=== PATIENT | female | born 1950 | race Caucasian/White ===

== ENCOUNTER → 2018-02-01 18:59 | Outpatient (CLI) | payer MEDICARE, OTHER, SELFPAY ==
--- NOTE | 2018-02-01 19:04 | DI.MRI.S_ITS ---
PROCEDURE: MR ANKLE RT WO CON INDICATIONS: RIGHT ANKLE PERONEAL TENDINITIS TECHNIQUE: Noncontrast sagittal T1 spin echo and T2 fast spin echo with fat saturation, axial proton density fast spin echo and T2 fast spin echo with fat saturation, coronal T1 spin echo and T2 fast spin echo with fat saturation through the ankle/hindfoot. COMPARISON: None. FINDINGS: Image quality: Excellent. Bones and joints: No bone marrow contusions or fractures. No hindfoot coalitions. No osteochondral injuries of the talar dome. No pathologic joint effusions. Medial structures: The posterior tibialis, flexor digitorum longus, and flexor hallucis longus tendons are intact. There is minimal fluid adjacent to the posterior tibialis tendon suggestive of low-grade tenosynovitis although recommend clinical correlation given the subtlety of the appearance. The posterior tibial neurovascular bundle appears normal within the tarsal tunnel, without extrinsic mass effect. The deep layer (anterior and posterior tibiotalar ligaments) and superficial layer (tibionavicular, tibiospring, and tibiocalcaneal ligaments) of the deltoid ligament appear normal. The spring ligament components (superomedial calcaneonavicular, medioplantar oblique calcaneonavicular, and inferoplantar longitudinal ligaments) are intact. Lateral structures: The anterior talofibular, calcaneofibular, and posterior talofibular ligaments appear intact. More superiorly, the anterior and posterior tibiofibular ligaments appear intact, as is the intermalleolar ligament. The tibiofibular syndesmosis is normal in width at 2 mm or less. The peroneus longus and brevis tendons demonstrate normal location and morphology. However there is mild fluid adjacent to both tendons in keeping with tenosynovitis. Adjacent bony peroneal tubercle and retrotrochlear prominence are normal in size. The sinus tarsi demonstrates normal fatty signal, without edema, fibrosis, or cyst formation. Visualized sinus tarsi components (cervical ligament, interosseous talocalcaneal ligament, roots of the inferior extensor retinaculum) appear normal. The calcaneonavicular and calcaneocuboid components of the bifurcate ligament appear intact. The dorsal calcaneocuboid ligament appears intact. Anterior structures: The tibialis anterior, extensor hallucis longus, and extensor digitorum longus tendons appear intact. The dorsal talonavicular ligament appears intact. Posterior and plantar structures: Achilles tendon is intact. Medial and lateral bands of the plantar fascia are of normal thickness. No abductor digiti quinti muscle atrophy to suggest Clark neuropathy. IMPRESSION: Mild peroneal brevis and longus tenosynovitis. Minimal posterior tibialis tenosynovitis. Please correlate clinically given that this finding is quite subtle. Dictated by: Tam Rousseau M.D. on 02/02/2018 at 8:53 Approved by: Tam Rousseau M.D. on 02/02/2018 at 9:17
== END ==
PROVIDERS: Family Provider Family Medicine; Visit Provider Podiatrist
DX: M76.71 Peroneal tendinitis, right leg (principal)
CPT/HCPCS: 73721

== ENCOUNTER → 2018-11-25 13:06 | Outpatient (CLI) | payer MEDICARE, OTHER, SELFPAY ==
--- NOTE | 2018-11-25 | DI.RAD.S_ITS ---
PROCEDURE: XR HIP W PEL IF DONE RT 2V INDICATIONS: RIGHT HIP PAIN TECHNIQUE: AP pelvis with lateral view(s) of the right hip(s). COMPARISON: None. FINDINGS: Bones: Mild right hip joint osteoarthritic changes are seen. No fractures or dislocations. Pelvic ring appears intact. No evidence of avascular necrosis of femoral head. No suspicious bony lesions. Soft tissues: The visualized bowel gas pattern is normal. No suspicious soft tissue calcifications. IMPRESSION: Mild right hip joint osteoarthritis. Dictated by: David Holden M.D. on 11/25/2018 at 14:24 Approved by: David Holden M.D. on 11/25/2018 at 14:25
== END ==
PROVIDERS: Family Provider Family Medicine; Visit Provider Family Medicine
DX: M25.551 Pain in right hip (principal); M16.11 Unilateral primary osteoarthritis, right hip
CPT/HCPCS: 73502

== ENCOUNTER → 2019-08-29 11:19 | Outpatient (CLI) | payer MEDICARE, OTHER, SELFPAY ==
--- NOTE | 2019-08-29 | DI.US.S_ITS ---
PROCEDURE: US ABDOMEN COMPLETE INDICATIONS: ELEV LIVER ENZYMES/FATTY LIVER TECHNIQUE: Real-time scanning was performed of the abdominal and retroperitoneal organs, with image documentation. COMPARISON: None. FINDINGS: Liver: Liver is normal in size and demonstrate diffusely increased echotexture. Gallbladder: No gallstones. No gallbladder wall thickening, pericholecystic fluid or sonographic Morales's sign. Biliary ducts: Intrahepatic bile ducts are non-dilated. Extrahepatic bile duct caliber measures 8 mm. Normal is 6-7 mm or less in diameter, or 10 mm or less post-cholecystectomy. Pancreas: Visualized portions of the pancreas are sonographically normal. Spleen: Spleen is normal in size and homogeneous in echotexture. Kidneys: Kidneys are normal in size and echotexture. Right kidney measures 11.6 cm long; left kidney measures 9.9 cm long. No hydronephrosis or nephrolithiasis. No solid masses. There is a 1.4 cm parapelvic cyst versus extrarenal pelvis of the right kidney. Aorta: Visualized aorta is normal in caliber at less than 3 cm. Iliacs: Proximal common iliac arteries are normal in caliber at less than 2.5 cm. IVC: Intrahepatic inferior vena cava is patent. Miscellaneous: No free abdominal fluid. IMPRESSION: 1. Diffusely increased hepatic echotexture. This finding is most likely secondary to hepatic fatty infiltration although other hepatocellular disease may have a similar appearance. Recommend clinical correlation. 2. Prominent common bile duct measuring 8. Please correlate with serum bilirubin. If clinically indicated, MRCP may be helpful. 3. A 1.4 cm parapelvic cyst versus extrarenal pelvis of the right kidney. Dictated by: Jermaine Salazar M.D. on 08/29/2019 at 14:04 Approved by: Jermaine Salazar M.D. on 08/29/2019 at 14:09
== END ==
PROVIDERS: Family Provider Family Medicine; Visit Provider Family Medicine
DX: K76.0 Fatty (change of) liver, not elsewhere classified (principal); R74.8 Abnormal levels of other serum enzymes
CPT/HCPCS: 76700

== ENCOUNTER → 2020-02-02 11:31 | Outpatient (CLI) | payer MEDICARE, OTHER, SELFPAY ==
--- NOTE | 2020-02-02 11:39 | DI.RAD.S_ITS ---
PROCEDURE: XR CHEST 2V INDICATIONS: PERSISTENT COUGH/LT HIP PAIN TECHNIQUE: 2 views of the chest were acquired. COMPARISON: [facility], CHEST 2 VIEW, 08/27/2009, 9:44. FINDINGS: Surgical changes and devices: None. Lungs and pleura: Lungs are clear. No pleural effusions or pneumothorax. Mediastinum: Mediastinal contours are normal. Heart size is normal. Bones and chest wall: No suspicious bony abnormalities. Soft tissues appear unremarkable. IMPRESSION: No acute pulmonary process. Dictated by: Luciana Villatoro M.D. on 02/02/2020 at 16:47 Approved by: Luciana Villatoro M.D. on 02/02/2020 at 16:48
--- NOTE | 2020-02-02 11:39 | DI.RAD.S_ITS ---
PROCEDURE: XR HIP W PEL IF DONE LT 2V INDICATIONS: PERSISTENT COUGH/ LT HIP PAIN TECHNIQUE: AP pelvis with lateral view(s) of the left hip(s). COMPARISON: [facility], [facility], XR HIP W PEL IF DONE RT 2V, 11/25/2018, 13:24. FINDINGS: Bones: No fractures or dislocations. Pelvic ring appears intact. No suspicious bony lesions. Minimal to mild bilateral degenerative hip joint space narrowing is present. Overall, relatively stable compared to prior exam. Soft tissues: The visualized bowel gas pattern is normal. No suspicious soft tissue calcifications. IMPRESSION: Minimal mild bilateral degenerative hip joint space narrowing suggestive osteoarthritis. Dictated by: Luciana Villatoro M.D. on 02/02/2020 at 16:48 Approved by: Luciana Villatoro M.D. on 02/02/2020 at 16:49
== END ==
PROVIDERS: Family Provider Family Medicine; PCP Family Medicine; Referring Provider Family Medicine; Visit Provider Family Medicine
DX: R05 Cough (principal); M25.552 Pain in left hip
CPT/HCPCS: 71046; 73502

== ENCOUNTER → 2020-03-01 16:20 | Outpatient (CLI) | payer MEDICARE, OTHER, SELFPAY ==
--- NOTE | 2020-03-01 16:22 | DI.MRI.S_ITS ---
PROCEDURE: MR HIP LT WO CON INDICATIONS: LEFT HIP PAIN TECHNIQUE: Noncontrast coronal T1 spin echo and STIR through the bony pelvis. Coronal and axial T2 fast spin echo with fat saturation, sagittal T1 spin echo, and oblique axial T2 fast spin echo with fat saturation through the hip. COMPARISON: [facility], CR, XR HIP W PEL IF DONE LT 2V, 02/02/2020, 11:38. FINDINGS: Image quality: Excellent. Bones and joints: Bone marrow of the pelvic ring and proximal femurs show normal signal throughout. No intraosseous lesions or fractures. No avascular necrosis of the femoral heads. The visualized lower lumbar spine appears normally aligned. Tendons and ligaments: The gluteus medius and minimus tendons appear intact, without associated muscle atrophy. The nearby proximal iliotibial band also appears intact. The iliopsoas tendon appears intact, without adjacent bursal fluid collections or evidence for impingement syndrome. The origin of the hamstring tendon is intact at the ischial tuberosity, as well as the associated sacrotuberous ligament. The straight and reflected heads of the rectus femoris muscle origin appear intact, as well as the conjoint tendon. The ligamentum teres appears intact where visualized. Labrum and cartilage: The acetabular labrum appears intact in the absence of intra-articular contrast. Cartilage surface of the femoral head appears of normal thickness. The alpha angle of the femur is within normal limits at less than 55 degrees. Soft tissues: Visualized muscles demonstrate normal bulk and internal signal, however the greater trochanteric bursal margins are asymmetrically thickened and edematous, consistent with chronic bursitis without adjacent trauma as the underlying cause. Quadratus femoris muscle demonstrates no internal edema to suggest ischiofemoral impingement. The proximal sciatic neurovascular bundle appears normal adjacent to the hamstring tendons. No free pelvic fluid. Bladder wall thickness is normal. Genitourinary structures and bowel loops appear normal where visualized. IMPRESSION: Asymmetric left-sided greater trochanteric bursitis, without evidence of blunt trauma as the underlying cause of soft tissue edema and thickening in that area. No abnormal fluid collection within the bursal space is found. There is a small degree of degenerative hip joint osteoarthritis bilaterally. No trauma found. Dictated by: Carmelo Ashley M.D. on 03/04/2020 at 9:37 Approved by: Carmelo Ashley M.D. on 03/04/2020 at 9:52
== END ==
PROVIDERS: Family Provider Family Medicine; PCP Family Medicine; Referring Provider Family Medicine; Visit Provider Family Medicine
DX: M25.552 Pain in left hip (principal); M16.0 Bilateral primary osteoarthritis of hip; M70.62 Trochanteric bursitis, left hip
CPT/HCPCS: 73721

== ENCOUNTER → 2020-07-08 14:49 | Outpatient (CLI) | payer MEDICARE, OTHER, SELFPAY ==
[2020-07-08 17:40] LABS: COVID19 -Nasal RAPID Negative (Negative)
== END ==
PROVIDERS: Family Provider Family Medicine; PCP Family Medicine; Visit Provider Physician Assistant
DX: Z11.59 Encounter for screening for other viral diseases (principal)
CPT/HCPCS: 87635

== ENCOUNTER 2020-07-10 12:15 | Day surgery (SDC) | payer MEDICARE, OTHER, SELFPAY ==
--- NOTE | 2020-07-09 13:01 | PM.PREOP ---
Pre-operative Note COVID-19 COVID-19 status: Negative Interval Note History & Physical reviewed/Exam performed by Physician: Yes Changes to H&P: No H&P completed within 30 days and has changed as indicated here:: tolerates topical NSAID and prednisone without reaction
--- NOTE | 2020-07-10 08:13 | PM.OP.1 ---
Operative Date/Time/Diagnoses Date of procedure: 07/10/20 Time of procedure: 12:00 Procedure & Clinicians Procedure: Preoperative diagnoses: 1. Right significant nuclear sclerotic and cortical cataract. 2. Arrhythmia 3. Asthma 4. Previous herpes zoster 5. Desire for a multifocal Panoptix lens Postoperative diagnoses: 1. Cataract removed by phacoemulsification with placement of Panoptix multifocal posterior chamber intraocular lens. Procedure: Phacoemulsification with posterior chamber intraocular lens implant Surgeon: Kandy Mccurdy MD Complications: None Specimen: None Implant: TFAT00+21.0 Blood loss: None Anesthesia: Retrobulbar with monitored standby Description of procedure: Patient presents with a complaint of decreased vision at all ranges of vision due to cataract which is affecting activities of daily living. The patient wants surgery to improve vision. She is trying to be as glasses independent as possible in chooses a multifocal. She understands that there may still be some need for glasses or residual refractive. The patient was taken to the operating room and given IV sedation. A retrobulbar block consisting of 6 cc of 2% xylocaine without epinephrine mixed half and half with 0.5% Marcaine with 1 cc of hyaluronidase added is placed between the medial and lateral 1/3 of the inferior orbital rim. The eye is manually massaged for 30 sec, prepped using Betadine solution, and draped in the usual sterile fashion. Temporal approach was made, a 1 mm side-port incision was made 90? from the proposed clear corneal incision position. Phenylephrine 1.5% mixed with 1% xylocaine 0.2 cc was placed into the anterior chamber. Viscoat followed by Amanda was then placed. A 2.6 mm clear incision with a 2.6 mm blade was placed. A 360 degree capsulorrhexis style capsulotomy was then performed with a cystitome needle on a Healon. Hydrodelineation and hydrodissection were performed. The phacoemulsification unit is introduced, and sculpting notice used to groove the central lens. It is then removed in chopping mode. Epi nucleus is removed with epinuclear mode and irrigation aspiration was used to remove the peripheral cortex. The posterior capsule is polished. The Panoptix intraocular lens is selected, inspected, power confirmed, and placed in the posterior chamber. It was carefully centered in the true visual axis. The wound was stromally hydrated and tested for leaks, there was none and it was left sutureless. Vigamox 0.1 cc was placed into the anterior chamber. Kenalog 0.2 cc was placed in the superior subconjunctival space. A drop of antibiotic and was placed and the eye was patched and shielded. The patient was stable and returned to the recovery room in excellent condition. Dictated by: Kandy Mccurdy MD Copy to: [facility] Same procedure as scheduled: Yes
[2020-07-10] MEDS: PROPARACAINE 0.5% OPHTH SOL 2 DROPS EYE-OP (12:42)
[2020-07-10] MEDS: CATARACT EYE COMPOUND (10 DROPS/SYRINGE) 3 DROPS EYE-OP (12:46)
[2020-07-10 12:47] VITALS: BP 130/73; PULSE 69; RESP 12; TEMP 36.7; O2SAT 99; BMI 23.5
[2020-07-10] MEDS: LIDOCAINE 2% 4 ML, BUPIVACAINE 0.5% (PF) 4 ML, HYALURONIDASE 150 UNIT INJ (13:16)
[2020-07-10] MEDS: HYALURONATE SODIUM 10 MG/ML SYRINGE INJ (13:31)
[2020-07-10] MEDS: MOXIFLOXACIN INJ 5 MG/ML VIAL EYE-OP (13:31)
[2020-07-10] MEDS: CHONDROIDTIN/SOD HYALURONATE 1.05 ML SYRINGE INTRAOCULA (13:31)
[2020-07-10] MEDS: TRIAMCINOLONE 50 MG/5 ML VIAL INJ (13:32)
[2020-07-10] MEDS: PHENYLEPHRINE/LIDOCAINE VIAL (OR) 0.2 ML EYE-OP (13:32)
[2020-07-10] MEDS: BALANCED SALT IRRIG SOLN NO.2 500 ML, EPINEPHrine 1 MG IRR (13:33)
[2020-07-10] MEDS: ERYTHROMYCIN OPHTH 1 GM OINT 1 APPLIC EYE-RIGHT (14:04)
[2020-07-10 14:15] VITALS: BP 120/72; PULSE 54; RESP 16; TEMP 36.2; O2SAT 98
== END 2020-07-10 14:20 | disposition home or self-care (01) ==
PROVIDERS: Family Provider Family Medicine; PCP Family Medicine; Referring Provider Ophthalmology; Visit Provider Ophthalmology
PROC: (CPT 66984; principal; 2020-07-10 13:15)
DX: H25.811 Combined forms of age-related cataract, right eye (principal); I49.9 Cardiac arrhythmia, unspecified; J45.909 Unspecified asthma, uncomplicated
CPT/HCPCS: 66984; J0171; J2250; J2704; J3010; J3301; J3470; V2788

== ENCOUNTER → 2020-07-22 11:32 | Outpatient (CLI) | payer MEDICARE, OTHER, SELFPAY ==
[2020-07-22 12:56] LABS: COVID19 -Nasal RAPID Negative (Negative)
== END ==
PROVIDERS: Family Provider Family Medicine; PCP Family Medicine; Visit Provider Physician Assistant
DX: Z11.59 Encounter for screening for other viral diseases (principal)
CPT/HCPCS: 87635

== ENCOUNTER 2020-07-24 13:47 | Day surgery (SDC) | payer MEDICARE, OTHER, SELFPAY ==
--- NOTE | 2020-07-23 19:17 | PM.PREOP ---
Pre-operative Note COVID-19 COVID-19 status: Negative Interval Note History & Physical reviewed/Exam performed by Physician: Yes Changes to H&P: No
--- NOTE | 2020-07-23 20:27 | PM.OP.1 ---
Operative Date/Time/Diagnoses Date of procedure: 07/24/20 Time of procedure: 14:15 Procedure & Clinicians Procedure: Preoperative diagnoses: 1. Left nuclear sclerotic and cortical cataract. 2. Asthma 3. Previous shingles 4. Elects a multifocal Panoptix intra-ocular lens. Postoperative diagnoses: 1. Cataract removed by phacoemulsification with placement of a multi focal posterior chamber intraocular lens. Procedure: Phacoemulsification with posterior chamber multifocal intraocular lens implant Surgeon: Kandy Mccurdy MD Complications: None Specimen: None Implant: TFAT00+20.5 Blood loss: None Anesthesia: Retrobulbar with monitored standby Description of procedure: Patient presents with a complaint of decreased vision due to cataract which is affecting activities of daily living. The patient wants surgery to improve vision. The patient was taken to the operating room and given IV sedation. A retrobulbar block consisting of 6 cc of 2% xylocaine without epinephrine mixed half and half with 0.5% Marcaine with 1 cc of hyaluronidase added is placed between the medial and lateral 1/3 of the inferior orbital rim. The eye is manually massaged for 30 sec, prepped using Betadine solution, and draped in the usual sterile fashion. Temporal approach was made, a 1 mm side-port incision was made 90? from the proposed clear corneal incision position. Phenylephrine 1.5% mixed with 1% xylocaine 0.2 cc was placed into the anterior chamber. Viscoat followed by Amanda was then placed. A 2.6 mm clear incision with a 2.6 mm blade was placed. A 360 degree capsulorrhexis style capsulotomy was then performed with a cystitome needle on a Healon. Hydrodelineation and hydrodissection were performed. The phacoemulsification unit is introduced, and sculpting notice used to groove the central lens. It is then removed in chopping mode. Epi nucleus is removed with epinuclear mode and irrigation aspiration was used to remove the peripheral cortex. The posterior capsule is polished. The multifocal intraocular lens is selected, inspected, power confirmed, and placed in the posterior chamber. It was carefully centered on the visual The wound was stromally hydrated and tested for leaks, there was none and it was left sutureless. Vigamox 0.1 cc was placed into the anterior chamber. Kenalog 0.2 cc was placed in the superior subconjunctival space. A drop of antibiotic and was placed and the eye was patched and shielded. The patient was stable and returned to the recovery room in excellent condition. Dictated by: Kandy Mccurdy MD Copy to: [facility] Same procedure as scheduled: Yes
[2020-07-24] MEDS: CATARACT EYE COMPOUND (10 DROPS/SYRINGE) 3 DROPS EYE-OP (14:41)
[2020-07-24] MEDS: PROPARACAINE 0.5% OPHTH SOL 2 DROPS EYE-OP (14:41)
[2020-07-24 15:04] VITALS: BP 136/72; PULSE 79; RESP 20; TEMP 36.4; O2SAT 99; BMI 23.5
[2020-07-24] MEDS: CHONDROIDTIN/SOD HYALURONATE 1.05 ML SYRINGE INTRAOCULA (16:05)
[2020-07-24] MEDS: MOXIFLOXACIN INJ 5 MG/ML VIAL EYE-OP (16:06)
[2020-07-24] MEDS: TRIAMCINOLONE 50 MG/5 ML VIAL INJ (16:06)
[2020-07-24] MEDS: HYALURONATE SODIUM 10 MG/ML SYRINGE INJ (16:06)
[2020-07-24] MEDS: PHENYLEPHRINE/LIDOCAINE VIAL (OR) 0.2 ML EYE-OP (16:06)
[2020-07-24] MEDS: ERYTHROMYCIN OPHTH 1 GM OINT 1 APPLIC EYE-LEFT (16:06)
[2020-07-24] MEDS: BALANCED SALT IRRIG SOLN NO.2 500 ML, EPINEPHrine 1 MG IRR (16:07)
[2020-07-24] MEDS: LIDOCAINE 2% 4 ML, BUPIVACAINE 0.5% (PF) 4 ML, HYALURONIDASE 150 UNIT INJ (16:07)
[2020-07-24 16:35] VITALS: BP 133/73; PULSE 64; RESP 16; TEMP 36.1; O2SAT 98
== END 2020-07-24 16:42 | disposition home or self-care (01) ==
PROVIDERS: Family Provider Family Medicine; PCP Family Medicine; Referring Provider Ophthalmology; Visit Provider Ophthalmology
PROC: (CPT 66984; principal; 2020-07-24 15:15)
DX: H25.812 Combined forms of age-related cataract, left eye (principal); J45.909 Unspecified asthma, uncomplicated
CPT/HCPCS: 66984; J0171; J2704; J3301; J3470; V2788

== ENCOUNTER → 2022-04-22 09:09 | Outpatient (CLI) | payer MEDICARE, OTHER, SELFPAY ==
--- NOTE | 2022-04-22 | DI.RAD.S_ITS ---
PROCEDURE: XR ELBOW RT MIN 3V INDICATIONS: RIGHT ELBOW PAIN TECHNIQUE: 3 views of the elbow were acquired. COMPARISON: None. FINDINGS: Bones: No fractures or dislocations. No suspicious bony lesions. Soft tissues: No elbow joint effusion. No suspicious soft tissue calcifications. IMPRESSION: No acute fracture. No osseous lesion. If symptoms and/or clinical suspicion for pathology persist, further assessment with repeat, or advanced imaging (e.g., CT, MRI, or bone scan) may be helpful for further assessment. Dictated by: Nathalia Angel M.D. on 04/22/2022 at 11:31 Approved by: Nathalia Angel M.D. on 04/22/2022 at 11:31
== END ==
PROVIDERS: Family Provider Family Medicine; PCP Family Medicine; Referring Provider Family Medicine; Visit Provider Family Medicine
DX: M25.521 Pain in right elbow (principal)
CPT/HCPCS: 73080

== ENCOUNTER → 2022-04-29 14:20 | Outpatient (CLI) | payer MEDICARE, OTHER, SELFPAY ==
--- NOTE | 2022-04-29 14:22 | DI.MG.S_ITS ---
BILATERAL DIGITAL SCREENING MAMMOGRAM 3D/2D WITH CAD: 04/29/2022 CLINICAL: Routine screening. Comparison is made to exams dated: 10/30/2020 mammogram, 11/24/2018 mammogram, and 08/25/2017 mammogram - [facility]. Both breasts are heterogeneously dense, which may obscure small masses (category c / 51-75% glandular tissue). Current study was also evaluated with a Computer Aided Detection (CAD) system. There are grouped heterogeneous calcifications in the left breast at 8 o'clock middle depth. These are increased in size and number. Benign vascular calcifications in the left breast. There is a biopsy clip in the left breast. No other significant masses, calcifications, or other findings are seen in either breast. IMPRESSION: INCOMPLETE: NEEDS ADDITIONAL IMAGING EVALUATION The grouped heterogeneous calcifications in the left breast are indeterminate. A diagnostic mammogram is recommended. Based on the Tyrer Cuzick model (a risk assessment model) the patient's lifetime risk is 12.0% and her 10 year risk is 7.2%. According to the ACR, ACS, and NCCN guidelines, an annual breast MRI exam along with mammogram is recommended if the patient's lifetime risk is 20% or greater. This exam was interpreted at Station ID: [id number]. NOTE: For mammograms, a report in lay terms will be sent to the patient. Approximately 15% of breast malignancies will not be visualized mammographically. In the management of a palpable breast mass, a negative mammogram must not discourage biopsy of a clinically suspicious lesion. Electronically Signed By: Franco Hawk M.D. slc/:04/29/2022 17:23:37 letter sent: Additional Imaging Needed ACR BI-RADS Category 0: Incomplete 3340F
== END ==
PROVIDERS: Family Provider Family Medicine; PCP Family Medicine; Referring Provider Family Medicine; Visit Provider Family Medicine
DX: Z12.31 Encounter for screening mammogram for malignant neoplasm of breast (principal); R92.1 Mammographic calcification found on diagnostic imaging of breast
CPT/HCPCS: 77063; 77067

== ENCOUNTER → 2022-05-11 13:15 | Outpatient (CLI) | payer MEDICARE, OTHER, SELFPAY ==
--- NOTE | 2022-05-11 | DI.MG.S_ITS ---
UNILATERAL LEFT DIGITAL DIAGNOSTIC MAMMOGRAM 3D/2D WITH ADDITIONAL VIEWS: 05/11/2022 CLINICAL: Additional evaluation requested from prior study. Comparison is made to exams dated: 04/29/2022 mammogram - [facility], 10/30/2020 mammogram, and 11/24/2018 mammogram - [facility]. The left breast is heterogeneously dense, which may obscure small masses (category c / 51-75% glandular tissue). There are benign grouped heterogeneous calcifications in the left breast at 8 o'clock middle depth. These are not significantly changed. No other significant masses or calcifications are seen in the breast. IMPRESSION: BENIGN There is no mammographic evidence of malignancy. A 1 year screening mammogram is recommended. Based on the Tyrer Cuzick model (a risk assessment model) the patient's lifetime risk is 12.0% and her 10 year risk is 7.2%. According to the ACR, ACS, and NCCN guidelines, an annual breast MRI exam along with mammogram is recommended if the patient's lifetime risk is 20% or greater. This exam was interpreted at Station ID: [id number]. NOTE: For mammograms, a report in lay terms will be sent to the patient. Approximately 15% of breast malignancies will not be visualized mammographically. In the management of a palpable breast mass, a negative mammogram must not discourage biopsy of a clinically suspicious lesion. Electronically Signed By: Emanuel Alvarenga M.D., jr/brittnee:05/11/2022 13:59:07 letter sent: Normal Exam ACR BI-RADS Category 2: Benign Finding(s) 3342F
== END ==
PROVIDERS: Family Provider Family Medicine; PCP Family Medicine; Referring Provider Family Medicine; Visit Provider Family Medicine
DX: R92.8 Other abnormal and inconclusive findings on diagnostic imaging of breast (principal)
CPT/HCPCS: 77065; G0279

== ENCOUNTER → 2022-08-05 11:02 | Outpatient (CLI) | payer MEDICARE, OTHER, SELFPAY ==
[2022-08-05 11:45] LABS: COVID19 -Nasal RAPID Negative (Negative)
== END ==
PROVIDERS: Family Provider Family Medicine; PCP Family Medicine; Referring Provider Orthopaedic Surgery; Visit Provider Orthopaedic Surgery
DX: Z20.822 Contact with and (suspected) exposure to COVID-19 (principal)
CPT/HCPCS: 87635; C9803

== ENCOUNTER 2022-08-07 09:03 | Day surgery (SDC) | payer MEDICARE, OTHER, SELFPAY ==
[2022-08-05 07:58] VITALS: BMI 24.5
[2022-08-07] VITALS (7 sets, daily range): BP systolic 112–157; BP diastolic 56–78; PULSE 64–88; RESP 12–16; TEMP 36.3–36.6; O2SAT 97–100; BMI 24.0
[2022-08-07] MEDS: LACTATED RINGERS 1,000 ML 42 ML IV ×2 (10:08→12:11)
--- NOTE | 2022-08-07 11:18 | PM.HP.1 ---
History of Present Illness History of Present Illness Date Patient Seen: 08/07/22 Time Patient Seen: 11:18 Chief complaint: DEBRIDEMENT OF RIGHT TENNIS ELBOW Narrative: Patient seen in the preoperative holding unit. She was last seen in clinic in June. She is had no changes in her tennis elbow symptoms since then. No recent nausea, vomiting, diarrhea, fevers, chills or any other constitutional symptoms. Patient History Medical History Asthma COVID-19 virus infection (12/2021) DVT (deep venous thrombosis) Osteoporosis Right tennis elbow Surgical History H/O left wrist surgery H/O right wrist surgery History of hysterectomy Hx of appendectomy Hx of arthroscopy of left knee Hx of arthroscopy of right knee Hx of removal of cyst S/P excision of Garcia's neuroma Family & Social History Social History: household members spouse Tobacco & Substance use: Smoking Status Never smoker alcohol intake current alcohol intake frequency a few times a week Substance Use Type does not use Meds Home Medications and Allergies Home Medications Medication Instructions Recorded Confirmed Type atenolol 25 mg tablet 25 - 50 mg PO DAILY 07/10/20 08/07/22 History estradiol 0.05 mg/24 hr semiweekly 1 mg transdermal 2XW 07/10/20 08/07/22 History transdermal patch Allergies Allergy/AdvReac Type Severity Reaction Status Date / Time oxycodone Allergy Severe Hives Verified 08/07/22 09:31 Sulfa (Sulfonamide Allergy Severe facial Verified 08/07/22 09:31 Antibiotics) swelling NSAIDS (Non-Steroidal Allergy Intermediate Rash Verified 08/07/22 09:31 Anti-Inflamma codeine Allergy Unknown Hives Verified 08/07/22 09:31 hydrocodone Allergy Unknown Hives Verified 08/07/22 09:31 rosuvastatin AdvReac Severe Muscle Pain Verified 08/07/22 09:43 aspirin AdvReac Unknown Gastrointestinal Verified 08/07/22 09:31 Upset prednisone AdvReac Unknown sleep Verified 08/07/22 09:43 walking/talking Review of Systems Review of Systems ROS: Yes All systems reviewed with the patient and are negative except as otherwise documented Exam Vital Signs (past 8 hours): - 08/07/22 09:53 Temperature 97.8 F Pulse Rate 64 Respiratory Rate 12 Blood Pressure 157/78 H Pulse Oximetry 100 Oxygen Delivery Method Room Air Oxygen Delivery Method Room Air Narrative Exam Narrative: HEENT head atraumatic eyes anicteric moist mucous membranes Cardiovascular: Palpable peripheral pulses warm well-perfused extremities Respiratory: Breathing comfortably on room air Psych: Appropriate mood and affect Neuro: No acute deficits Musculoskeletal: Pain just distal and medial to the medial epicondyle. Pain with resisted wrist extension. Assessment & Plan Assessment & Plan narrative: Assessment: Right tennis elbow Plan: Patient here for operative debridement of right tennis elbow. We discussed the risks and benefits of surgery and she again wished to go forward with surgery. Time Spent With Patient Critical Care time: I spent a total of [] minutes of critical care time on this patient's care today; this time is exclusive of procedural time.
[2022-08-07] MEDS: CEFAZOLIN 2 GM/100 ML PREMIX 100 ML IV (11:40)
[2022-08-07] MEDS: BUPIVACAINE 0.5% W/ EPI (PF) 30 ML VIAL INJ (11:58)
--- NOTE | 2022-08-07 12:01 | SUR.OPER ---
Supine on padded OR bed, head on pillow, left arm secured on padded arm boards at <90 degrees abduction, right arm on arm board padded extension and in control of the Surgeon. legs uncrossed, safety belt at thigh, tape over blanket over lower legs. 2 pillows under knees, gel pad under bilateral heels.
[2022-08-07] MEDS: hydrOXYzine 50 MG/ML INJ 25 MG IM (12:48)
--- NOTE | 2022-08-07 13:06 | PM.OP.1 ---
Operative Date/Time/Diagnoses Date of procedure: 08/07/22 Time of procedure: 13:06 Pre-op diagnosis: Right tennis elbow Post-op diagnosis: same Procedure & Clinicians Procedure: Open debridement right ECRB tendon Same procedure as scheduled: Yes Indications: Yesica is a very pleasant 71-year-old female who has had tennis elbow in her right elbow for over a year. She is undergone physical therapy, counterforce strap, anti-inflammatories all of which have failed. Risks and benefits discussed again and she wished to go forth. Surgeon: Kenton Silva Click Yes if Unassisted: Yes Anesthesia Type: General Operative Notes Closure Type: primary Specimen(s): none sent
--- NOTE | 2022-08-07 14:58 | PM.OP.1 ---
Operative Date/Time/Diagnoses Date of procedure: 08/07/22 Time of procedure: 14:59 Pre-op diagnosis: Right tennis elbow Post-op diagnosis: same Procedure & Clinicians Procedure: Operative debridement of extensor carpi radialis brevis tendon origin (debridement of right tennis elbow) Same procedure as scheduled: Yes Indications: Yesica is a 71-year-old female who has had tennis elbow for over 1 year. She has done Over 1 year of nonoperative management and has failed. She continues to have pain on a daily basis which is distracting and interferes with her daily life. We discussed risks and benefits of surgery and she wished to go forward. Surgeon: Kenton Silva Click Yes if Unassisted: Yes Anesthesia Type: General Operative Notes Findings: tendinosis of the ECRB tendon as seen under direct visualization Closure Type: primary Specimen(s): none sent Prosthetic devices, grafts, tissues, transplants, or devices: None Estimated Blood Loss (mL): 5 Blood products transfused: none Tourniquet time (min): 23 Procedure in detail: Patient was seen in the preoperative holding unit. Her right upper extremity was marked with my initials. We again went over the risks and benefits of the procedure and she wished to go forward. She was brought back to the operating room and placed supine on the operating table. She underwent smooth induction of anesthesia with an LMA. Tourniquet was applied to the right upper extremity. The right upper extremity was then prepped and draped in the standard sterile fashion. My initials were again noted on her right upper extremity and tourniquet was inflated to 250 mmHg. I began with a small 3 cm incision over and just distal to the lateral epicondyle. The ECRL and extensor digitorum communis was noted. The interval between was incised and the ECRL was elevated. Underneath was the ECRB fibers as the inserted on the lateral epicondyle. These were noted to be degenerated. The degenerated fibers of the ECRB were then cut out with a scalpel. The remaining area was debrided the healthy tendon was then repaired to the ECRL with interrupted buried Ethibond sutures. The skin closure was done with 3-0 Monocryl. Dressing was done with Xeroform, 4x4s and cast padding. She was brought to the postoperative holding unit Complications: none Post-operative Condition: stable Disposition: PACU Plan for aftercare: Postoperatively, pain control with ice and Tylenol as she can not tolerate narcotics or NSAIDs. No heavy lifting for the next 4 weeks. . Gentle range of motion acceptable. Dressings may come off after 2 days in order to shower, then replaced dressings for 3 more days and then they can come off completely. Follow up in 2 weeks for wound check.
== END 2022-08-07 13:30 | disposition home or self-care (01) ==
PROVIDERS: Family Provider Family Medicine; PCP Family Medicine; Referring Provider Orthopaedic Surgery; Visit Provider Orthopaedic Surgery
PROC: (CPT 24359; principal; 2022-08-07 10:45)
DX: M67.823 Other specified disorders of tendon, right elbow (principal)
CPT/HCPCS: 24359; J0690; J2250; J2405; J2704; J3010; J3410

== ENCOUNTER → 2023-06-01 09:44 | Outpatient (CLI) | payer MEDICARE, OTHER, SELFPAY ==
--- NOTE | 2023-06-01 | DI.MG.S_ITS ---
BILATERAL DIGITAL SCREENING MAMMOGRAM 3D/2D WITH CAD: 06/01/2023 CLINICAL: Routine screening. Family history of breast cancer. Comparison is made to exams dated: 04/29/2022 mammogram and 05/11/2022 mammogram - [facility]. Both breasts are heterogeneously dense, which may obscure small masses (category c / 51-75% glandular tissue). Current study was also evaluated with a Computer Aided Detection (CAD) system. There are benign calcifications in both breasts. There also are benign vascular calcifications in both breasts. Additionally, there is a biopsy clip in the left breast. No significant masses, calcifications, or other findings are seen in either breast. There has been no significant interval change. IMPRESSION: BENIGN There is no mammographic evidence of malignancy. A 1 year screening mammogram is recommended. Based on the Tyrer Cuzick model (a risk assessment model) the patient's lifetime risk is 11.4% and her 10 year risk is 7.3%. According to the ACR, ACS, and NCCN guidelines, an annual breast MRI exam along with mammogram is recommended if the patient's lifetime risk is 20% or greater. This exam was interpreted at Station ID: [id number]. NOTE: For mammograms, a report in lay terms will be sent to the patient. Approximately 15% of breast malignancies will not be visualized mammographically. In the management of a palpable breast mass, a negative mammogram must not discourage biopsy of a clinically suspicious lesion. Electronically Signed By: Franco ramirez/brittnee:06/01/2023 13:23:41 letter sent: Normal Exam ACR BI-RADS Category 2: Benign Finding(s) 3342F
== END ==
PROVIDERS: PCP Family Medicine; Referring Provider Family Medicine; Visit Provider Family Medicine
DX: Z12.31 Encounter for screening mammogram for malignant neoplasm of breast (principal); Z80.3 Family history of malignant neoplasm of breast
CPT/HCPCS: 77063; 77067

== ENCOUNTER 2023-08-09 14:03 | Emergency (ER) | payer MEDICARE, OTHER, SELFPAY ==
[2023-08-09 14:07] VITALS: BP 142/67; PULSE 89; RESP 24; TEMP 37.5; O2SAT 97; BMI 22.8
--- NOTE | 2023-08-09 14:13 | DI.RAD.S_ITS ---
PROCEDURE: XR CHEST 2V INDICATIONS: cough, SOB, wheezing TECHNIQUE: 2 views of the chest were acquired. COMPARISON: [facility], , XR CHEST 2V, 02/02/2020, 11:38. [facility], , CHEST 2 VIEW, 08/27/2009, 9:44. FINDINGS: Surgical changes and devices: None. Lungs and pleura: Lungs are clear. No pleural effusions or pneumothorax. Mediastinum: Mediastinal contours are normal. Heart size is normal. Bones and chest wall: No suspicious bony abnormalities. Soft tissues appear unremarkable. IMPRESSION: No acute cardiopulmonary abnormality is seen. Dictated by: Samy Burrell M.D. on 08/09/2023 at 15:02 Approved by: Samy Burrell M.D. on 08/09/2023 at 15:03
[2023-08-09 14:59] LABS: Influenza A - CEPHEID Flu A NEGATIVE (NEGATIVE); Influenza B - CEPHEID Flu B NEGATIVE (NEGATIVE)
[2023-08-09 15:01] LABS: COVID-19 CEPHEID 4-PLEX PCR Negative (Negative)
[2023-08-09 15:03] LABS: Respiratory Syncytial Virus POSITIVE (Negative)
--- NOTE | 2023-08-09 15:19 | ED.URI ---
HPI - URI/Sore Throat General Chief Complaint: Upper Respiratory Symptoms Stated Complaint: coughing/ wheezing/ Time Seen by Provider: 08/09/23 14:28 Source: patient Mode of arrival: Ambulatory Related Data Home Medications Medication Instructions Recorded Confirmed atenolol 25 mg tablet 25 - 50 mg PO DAILY 07/10/20 08/07/22 estradiol 0.05 mg/24 hr semiweekly 1 mg transdermal 2XW 07/10/20 08/07/22 transdermal patch Previous Rx's Medication Instructions Recorded albuterol sulfate 90 mcg/actuation 2 puff inhalation Q4-6H PRN 08/09/23 aerosol inhaler shortness of breath or wheezing #6.7 grams benzonatate 100 mg capsule 100 mg PO BID-TID PRN cough #30 08/09/23 caps Allergies Allergy/AdvReac Type Severity Reaction Status Date / Time oxycodone Allergy Severe Hives Verified 08/09/23 14:07 Sulfa (Sulfonamide Allergy Severe facial Verified 08/09/23 14:07 Antibiotics) swelling NSAIDS (Non-Steroidal Allergy Intermediate Rash Verified 08/09/23 14:07 Anti-Inflamma codeine Allergy Unknown Hives Verified 08/09/23 14:07 hydrocodone Allergy Unknown Hives Verified 08/09/23 14:07 rosuvastatin AdvReac Severe Muscle Pain Verified 08/09/23 14:07 aspirin AdvReac Unknown Gastrointestinal Verified 08/09/23 14:07 Upset prednisone AdvReac Unknown sleep Verified 08/09/23 14:07 walking/talking Patient History Medical History Asthma COVID-19 virus infection (12/2021) DVT (deep venous thrombosis) Osteoporosis Right tennis elbow Surgical History H/O left wrist surgery H/O right wrist surgery History of hysterectomy Hx of appendectomy Hx of arthroscopy of left knee Hx of arthroscopy of right knee Hx of removal of cyst S/P excision of Garcia's neuroma Social History household members: spouse Smoking Status: Never smoker alcohol intake: current Smoking Status: Never smoker alcohol intake frequency: a few times a week Substance Use Type: does not use Exam Initial Vital Signs Initial Vital Signs: Vital Signs Temperature 99.5 F 08/09/23 14:07 Pulse Rate 89 08/09/23 14:07 Respiratory Rate 24 08/09/23 14:07 Blood Pressure 142/67 H 08/09/23 14:07 Pulse Oximetry 97 08/09/23 14:07 Oxygen Delivery Method Room Air 08/09/23 14:07 Course Orders Ordered: ED Orders 08/09/23 14:13 XR chest 2V Stat 08/09/23 14:15 Covid-19 + FLU A/B + RSV - PCR Stat Vital Signs Vital signs: Vital Signs - 8 hr 08/09/23 14:07 Temperature 99.5 F Pulse Rate 89 Respiratory Rate 24 Blood Pressure 142/67 H Pulse Oximetry 97 Oxygen Delivery Method Room Air MDM - URI/Sore Throat Lab Data Labs: Lab Results 08/09/23 Range/Units 14:15 SARS-CoV-2 (PCR) Negative (Negative) Influenza A (RT-PCR) Flu a negative (NEGATIVE) Influenza B (RT-PCR) Flu b negative (NEGATIVE) RSV (PCR) Positive A (Negative) Discharge Plan Departure Patient Disposition: Home Clinical Impression: Respiratory syncytial virus (RSV) Activity Restrictions/Additional Instructions: You have been diagnosed with RSV today. I recommend treatment with albuterol inhaler as well as with Tessalon Perles. I have sent these into your pharmacy [facility]. I recommend continued rest, Tylenol ibuprofen as needed. Please return to the emergency department if you should develop difficulty breathing, difficulty staying hydrated or if you are developing concerning weakness making it difficult to care for herself at home. Or other concerning symptoms. Thank you for coming in today for your care. *You have been diagnosed with RSV *What to do: *Please continue to take your regular medications as directed. [x ] New medication prescriptions sent to your pharmacy: [[facility] ] [ ] New medication written as a paper prescription [ ] No new medications given *Please follow up with your primary care provider in 2-3 days, call for an appointment. Let them know you were seen in the Emergency Department and that we ask that you be seen in follow up. We will electronically transmit a record of today's note if your PCP is in our system *If you do not have a primary care provider please contact the [facility] Resource line at [phone]. They will ask some questions about your medical history and help get you set up with a doctor in the community. *Return to Emergency Department if you should have any new, worsening or concerning symptoms, such as [fever greater than 101 F, shaking chills, worsening pain, persistent vomiting or other bothersome symptoms] Prescriptions: New albuterol sulfate 90 mcg/actuation HFA aerosol inhaler 2 puff inhalation Q4-6H PRN (Reason: shortness of breath or wheezing) Qty: 6.7 0RF benzonatate 100 mg capsule 100 mg PO BID-TID PRN (Reason: cough) Qty: 30 0RF No Action atenolol 25 mg tablet 25 - 50 mg PO DAILY estradiol 0.05 mg/24 hr patch semiweekly 1 mg transdermal 2XW Referrals: Alok Velasco MD [Primary Care Provider] - Stand Alone Forms: Patient Portal/API
--- NOTE | 2023-08-09 15:23 | ED_ITS ---
HPI - URI/Sore Throat General Chief Complaint: Upper Respiratory Symptoms Stated Complaint: coughing/ wheezing/ Time Seen by Provider: 08/09/23 14:28 Source: patient Mode of arrival: Ambulatory History of Present Illness HPI Narrative: Patient is a 72-year-old female presenting for evaluation of cough, fever and chills for the last 4 or 5 days. She states that she is had a little bit of a sore throat which he thinks is due to her persistent coughing. She states that she is also having sinus congestion and coughing up green and red specks. She reports her ribs are quite sore and she has noticed crackling in her upper chest. She denies any ear pain. She denies any nausea or vomiting. She states that she had a fever today of 101.6. She took some Tessalon Perles which she had left over from 2010. She would like to use [facility] as her pharmacy. She denies chest pain aside from coughing. She states that she has had a clot in her leg before, but denies a clot in her lung. She denies taking any anticoagulants, but does note she is on a beta-augustina. She reports she does have underlying asthma Related Data Home Medications Medication Instructions Recorded Confirmed atenolol 25 mg tablet 25 - 50 mg PO DAILY 07/10/20 08/07/22 estradiol 0.05 mg/24 hr semiweekly 1 mg transdermal 2XW 07/10/20 08/07/22 transdermal patch Previous Rx's Medication Instructions Recorded albuterol sulfate 90 mcg/actuation 2 puff inhalation Q4-6H PRN 08/09/23 aerosol inhaler shortness of breath or wheezing #6.7 grams benzonatate 100 mg capsule 100 mg PO BID-TID PRN cough #30 08/09/23 caps Allergies Allergy/AdvReac Type Severity Reaction Status Date / Time oxycodone Allergy Severe Hives Verified 08/09/23 14:07 Sulfa (Sulfonamide Allergy Severe facial Verified 08/09/23 14:07 Antibiotics) swelling NSAIDS (Non-Steroidal Allergy Intermediate Rash Verified 08/09/23 14:07 Anti-Inflamma codeine Allergy Unknown Hives Verified 08/09/23 14:07 hydrocodone Allergy Unknown Hives Verified 08/09/23 14:07 rosuvastatin AdvReac Severe Muscle Pain Verified 08/09/23 14:07 aspirin AdvReac Unknown Gastrointestinal Verified 08/09/23 14:07 Upset prednisone AdvReac Unknown sleep Verified 08/09/23 14:07 walking/talking Review of Systems Review of Systems Narrative: See HPI Patient History Medical History Asthma COVID-19 virus infection (12/2021) DVT (deep venous thrombosis) Osteoporosis Right tennis elbow Surgical History H/O left wrist surgery H/O right wrist surgery History of hysterectomy Hx of appendectomy Hx of arthroscopy of left knee Hx of arthroscopy of right knee Hx of removal of cyst S/P excision of Garcia's neuroma Social History household members: spouse Smoking Status: Never smoker alcohol intake: current Smoking Status: Never smoker alcohol intake frequency: a few times a week Substance Use Type: does not use Exam Initial Vital Signs Initial Vital Signs: Vital Signs Temperature 99.5 F 08/09/23 14:07 Pulse Rate 89 08/09/23 14:07 Respiratory Rate 24 08/09/23 14:07 Blood Pressure 142/67 H 08/09/23 14:07 Pulse Oximetry 97 08/09/23 14:07 Oxygen Delivery Method Room Air 08/09/23 14:07 GENERAL: 72 year old patient appears stated age. Well-developed patient, in no acute distress. HEAD: Atraumatic. Normocephalic. EYES: Pupils equal round and reactive. Extraocular motions intact. No scleral icterus. No injection or drainage. ENT: Nose with rhinorrhea. Nasal mucosa edematous with erythema. Nares are without bleeding or purulent drainage. Throat with mild erythema, No tonsillar hypertrophy or exudate noted. Airway patent. TM visualized bilaterally with good cone of light, canals clear bilaterally. Pinna, tragus are non tender to palpation. NECK: Trachea midline. CARDIOVASCULAR: Regular rate and rhythm without murmurs, gallops, or rubs. RESPIRATORY: Clear to auscultation. Breath sounds equal bilaterally. No wheezes, rales, or rhonchi. Persistent coughing throughout exam, O2 sat 98% during examination NEURO: AOx3. SKIN: No rash or erythema of visible areas Course Orders Ordered: ED Orders 08/09/23 14:13 XR chest 2V Stat 08/09/23 14:15 Covid-19 + FLU A/B + RSV - PCR Stat Vital Signs Vital signs: Vital Signs - 8 hr 08/09/23 14:07 Temperature 99.5 F Pulse Rate 89 Respiratory Rate 24 Blood Pressure 142/67 H Pulse Oximetry 97 Oxygen Delivery Method Room Air MDM - URI/Sore Throat Lab Data Labs: Lab Results 08/09/23 Range/Units 14:15 SARS-CoV-2 (PCR) Negative (Negative) Influenza A (RT-PCR) Flu a negative (NEGATIVE) Influenza B (RT-PCR) Flu b negative (NEGATIVE) RSV (PCR) Positive A (Negative) Imaging Data Chest x-ray: Radiologist's Impression: PROCEDURE: XR CHEST 2V INDICATIONS: cough, SOB, wheezing TECHNIQUE: 2 views of the chest were acquired. COMPARISON: [facility], , XR CHEST 2V, 02/02/2020, 11:38. [facility], , CHEST 2 VIEW, 08/27/2009, 9:44. FINDINGS: Surgical changes and devices: None. Lungs and pleura: Lungs are clear. No pleural effusions or pneumothorax. Mediastinum: Mediastinal contours are normal. Heart size is normal. Bones and chest wall: No suspicious bony abnormalities. Soft tissues appear unremarkable. IMPRESSION: No acute cardiopulmonary abnormality is seen. Dictated by: Samy Burrell M.D. on 08/09/2023 at 15:02 Approved by: Samy Burrell M.D. on 08/09/2023 at 15:03 [facility] Narrative Medical decision making narrative: Patient is a 72-year-old female presenting for evaluation of cough and fever for the last 4 5 days. She tested positive for RSV today. She is concerned for possible pneumonia. Chest x-ray shows no acute cardiopulmonary abnormality. Differentials include pulmonary embolism, pneumonia, COVID, flu. Suspicion for pulmonary embolism is low as patient is oxygenating well with appropriate heart rate and a reasonable explanation for her increased cough with positive RSV. I recommend treatment with albuterol inhaler as well as Tessalon Perles to help reduce cough. I recommend she return to the emergency department if she should develop increased difficulty breathing or wheezing or difficulty caring for herself at home. Patient reports that she is taken albuterol before due to underlying asthma, but it does cause her heart rate to increase. I have provided new prescription for her for albuterol if she starts having increased difficulty breathing. Labs reviewed and interpreted by myself: RSV positive, negative for COVID and flu. Imaging reviewed: Chest x-ray shows no evidence of pneumonia or cardiopulmonary abnormality. Findings and discharge diagnosis discussed with patient/family followed by verbalization of understanding Return precautions discussed with patient/family whom verbalize understanding of diagnosis and plan Discharge Plan Departure Patient Disposition: Home Clinical Impression: Respiratory syncytial virus (RSV) Activity Restrictions/Additional Instructions: You have been diagnosed with RSV today. I recommend treatment with albuterol inhaler as well as with Tessalon Perles. I have sent these into your pharmacy [facility]. I recommend continued rest, Tylenol ibuprofen as needed. Please return to the emergency department if you should develop difficulty breathing, difficulty staying hydrated or if you are developing concerning weakness making it difficult to care for herself at home. Or other concerning symptoms. Thank you for coming in today for your care. *You have been diagnosed with RSV *What to do: *Please continue to take your regular medications as directed. [x ] New medication prescriptions sent to your pharmacy: [[facility] ] [ ] New medication written as a paper prescription [ ] No new medications given *Please follow up with your primary care provider in 2-3 days, call for an appointment. Let them know you were seen in the Emergency Department and that we ask that you be seen in follow up. We will electronically transmit a record of today's note if your PCP is in our system *If you do not have a primary care provider please contact the [facility] Resource line at [phone]. They will ask some questions about your medical history and help get you set up with a doctor in the community. *Return to Emergency Department if you should have any new, worsening or concerning symptoms, such as [fever greater than 101 F, shaking chills, worsening pain, persistent vomiting or other bothersome symptoms] Prescriptions: New albuterol sulfate 90 mcg/actuation HFA aerosol inhaler 2 puff inhalation Q4-6H PRN (Reason: shortness of breath or wheezing) Qty: 6.7 0RF benzonatate 100 mg capsule 100 mg PO BID-TID PRN (Reason: cough) Qty: 30 0RF No Action atenolol 25 mg tablet 25 - 50 mg PO DAILY estradiol 0.05 mg/24 hr patch semiweekly 1 mg transdermal 2XW Referrals: Alok Velasco MD [Primary Care Provider] - Stand Alone Forms: Patient Portal/API
== END 2023-08-09 15:54 | disposition home or self-care (01) ==
PROVIDERS: Family Medicine Addiction Medicine; Emergency Provider Physician Assistant; PCP Family Medicine
DX: B33.8 Other specified viral diseases (principal); B97.4 Respiratory syncytial virus as the cause of diseases classified elsewhere; Z20.822 Contact with and (suspected) exposure to COVID-19
CPT/HCPCS: 0241U; 71046; 99281; 99283

== ENCOUNTER → 2024-05-17 11:30 | Outpatient (CLI) | payer MEDICARE, OTHER, SELFPAY ==
--- NOTE | 2024-05-17 11:31 | DI.MG.S_ITS ---
BILATERAL DIGITAL DIAGNOSTIC MAMMOGRAM 3D/2D: 05/17/2024 CLINICAL: Right breast changes / Palpable right breast lump by physician. Comparison is made to exams dated: 06/01/2023 mammogram, 04/29/2022 mammogram - [facility], and 10/30/2020 mammogram - [facility]. The breasts are heterogeneously dense, which may obscure small masses (category c / 51-75% glandular tissue). No significant masses, calcifications, or other findings are seen in either breast. Left breast biopsy marker. IMPRESSION: INCOMPLETE: NEED ADDITIONAL IMAGING EVALUATION No mammographic evidence of malignancy. A targeted ultrasound is recommended and will immediately follow. Based on the Tyrer Cuzick model (a risk assessment model) the patient's lifetime risk is 10.8% and her 10 year risk is 7.4%. According to the ACR, ACS, and NCCN guidelines, an annual breast MRI exam along with mammogram is recommended if the patient's lifetime risk is 20% or greater. This exam was interpreted at Station ID: [id number]. NOTE: For mammograms, a report in lay terms will be sent to the patient. Approximately 15% of breast malignancies will not be visualized mammographically. In the management of a palpable breast mass, a negative mammogram must not discourage biopsy of a clinically suspicious lesion. Electronically Signed By: Franco Hawk M.D. slc/:05/17/2024 12:44:48 ACR BI-RADS Category 0: Incomplete: Need Additional Imaging Evaluation
--- NOTE | 2024-05-17 11:32 | DI.US.S_ITS ---
LIMITED ULTRASOUND OF RIGHT BREAST AND AXILLA: 05/17/2024 CLINICAL: Palpable right breast lump by physician. Skin indentation noticed by patient. Comparison is made to exams dated: 05/17/2024 mammogram, 06/01/2023 mammogram, 04/29/2022 mammogram - [facility], 10/30/2020 mammogram, 11/24/2018 mammogram, and 08/25/2017 mammogram - [facility]. Color flow and real-time ultrasound of the right breast 5-9 o'clock, and axilla regions were performed. Pulliam scale images of the real-time examination were reviewed. No significant abnormalities were seen sonographically in the right breast or the right axilla. A few small ducts. IMPRESSION: NEGATIVE There is no sonographic evidence of malignancy. No mass in the region of the palpable abnormality. Exam findings were conveyed to the patient. Patient is advised to monitor for significant change. Clinical follow-up as needed. Report of skin indentation. If high clinical suspicion, breast MRI could be considered for further evaluation. A 1 year screening mammogram is recommended. This exam was interpreted at Station ID: [id number]. Electronically Signed By: Franco Hawk M.D. slc/:05/17/2024 13:37:03 letter sent: Normal Exam ACR BI-RADS Category 1: Negative
== END ==
PROVIDERS: PCP Internal Medicine; Referring Provider Internal Medicine; Visit Provider Internal Medicine
DX: N63.14 Unspecified lump in the right breast, lower inner quadrant (principal); Z80.3 Family history of malignant neoplasm of breast; R92.333 Mammographic heterogeneous density, bilateral breasts
CPT/HCPCS: 76642; 77066; G0279

== ENCOUNTER → 2024-05-26 12:06 | Outpatient (CLI) | payer MEDICARE, OTHER, SELFPAY ==
--- NOTE | 2024-05-26 12:07 | DI.MRI.S_ITS ---
BREAST MRI OF BOTH BREASTS: 05/26/2024 CLINICAL: Right breast mass. Skin changes and Dimpling. TECHNIQUE: The patient was placed prone in a dedicated breast imaging coil. Precontrast axial STIR and 3D FLASH without fat saturation sequences were obtained. Both before and after bolus injection of contrast, sequential 1-minute axial 3D FLASH with fat saturation sequences for 3 time points, with subtraction images and maximum intensity projections (MIP's) generated. Delayed sagittal FLASH images with fat saturation were also obtained. Computer-aided detection, including computer algorithm analysis of MRI image data for lesion detection and characterization, pharmacokinetic analysis, with further physician review for interpretation, was performed. COMPARISON: [facility], , SCREENING MAMMO BI, 04/29/2022, 14:33. [facility], SCREENING MAMMO BI, 06/01/2023, 10:05. [facility], US BREAST RT LIMITED, 05/17/2024, 12:54. [facility], MM DIAGNOSTIC MAMMO BI, 05/17/2024, 12:23. FINDINGS: Image quality: Diagnostic. There is mild background parenchymal enhancement. There is heterogeneously dense fibroglandular tissue in the bilateral breast Right breast: . There is no suspicious abnormality identified in the lower, inner quadrant of the right breast to correlate with previously evaluated area of palpable concern denoted by a triangle skin marker on mammogram dated May 17, 2024. No sonographic correlate was identified in this area. On MRI, no suspicious mass, non-mass enhancement, or architectural distortion. No skin or nipple abnormalities visualized. No axillary or internal mammary chain adenopathy. Left breast: In the posterior depth of the lower, inner quadrant of the left breast near the 5-6 o'clock position approximately 6 cm from the nipple, there is a possible area of focal non-mass enhancement measuring approximately 0.8 x 1.1 cm in axial cross-sectional dimension (38/series 6) and approximately 1.0 cm in craniocaudal dimension (63/series 19). This appears less masslike and nonfocal on the sagittal projection. There is benign-appearing, delayed phase persistent enhancement kinetics. No definite vmware architect distortion. This finding subtle area of possible focal asymmetry versus fibroglandular tissue seen on comparison mammograms. No other suspicious mass, non-mass enhancement, or skin/nipple abnormalities identified in the left breast. No axillary or internal mammary chain adenopathy. Miscellaneous: Visualized portions of the upper abdomen and chest appear unremarkable. IMPRESSION: INCOMPLETE: NEED ADDITIONAL IMAGING EVALUATION 1. Right breast without MRI evidence for malignancy. No abnormalities identified to explain patient's reported area of palpable concern and overlying skin changes. 2. There is a possible area of focal non-mass enhancement measuring 0.8 x 1.1 x 1.0 cm in the posterior depth of the lower, inner quadrant of the left breast near the 5-6 o'clock position with possible correlate seen on comparison mammograms. Overall, findings appear stable to slightly more pronounced. This finding is less focal/masslike on the sagittal projection and is favored to represent fibroglandular tissue. However, recommend further evaluation with 2nd-look ultrasound and diagnostic mammogram to further characterize. COMMENT: The imaging literature indicates that a negative contrast breast MRI examination has a high sensitivity and a moderate specificity for detecting and excluding invasive carcinomas to a detection threshold of 3-5 mm; nonetheless, appropriate clinical and mammographic follow-up are recommended. MRI is not sensitive for detecting DCIS (ductal carcinoma in situ) and may not detect large invasive neoplasms that show only minimal enhancement such as mucinous carcinoma. If there are suspicious calcifications or clinically worrisome palpable masses, then biopsy should still be considered. Invasive neoplasms can be hidden by co-existent and benign enhancement caused by mastitis, hormone therapy effects, radiation therapy, , and recent biopsy or surgery. False positive examinations can occur in a number of circumstances, including breasts that have recently been subject to invasive procedures and those that contain atypical ductal hyperplasia, hormonally stimulated glandular tissue, fat necrosis, or radial scars. Future imaging is recommended as follows: 05/17/2025 screening mammogram. This exam was interpreted at Station ID: [id number]. Electronically Signed By: Rodríguez Alejandro M.D. aty/:05/27/2024 10:22:04 ACR BI-RADS Category 0: Incomplete: Need Additional Imaging Evaluation
== END ==
PROVIDERS: PCP Internal Medicine; Referring Provider Internal Medicine; Visit Provider Internal Medicine
DX: N63.14 Unspecified lump in the right breast, lower inner quadrant (principal); R23.4 Changes in skin texture
CPT/HCPCS: 77049; A9579

== ENCOUNTER → 2024-06-15 09:20 | Outpatient (CLI) | payer MEDICARE, OTHER, SELFPAY ==
--- NOTE | 2024-06-15 09:22 | DI.US.S_ITS ---
PROCEDURE: US BREAST LT LIMITED COMPARISON: None. INDICATIONS: ADD VIEWS LT FINDINGS: IMPRESSION: Dictated by: Rodríguez Alejandro M.D. on 06/15/2024 at 16:31 Approved by: Rodríguez Alejandro M.D. on 06/15/2024 at 16:49
--- NOTE | 2024-06-15 09:22 | DI.MG.S_ITS ---
UNILATERAL LEFT DIGITAL DIAGNOSTIC MAMMOGRAM 3D/2D: 06/15/2024 CLINICAL: Left breast finding from MRI done 05/26/24. Comparison is made to exams dated: 05/26/2024 breast MRI, 05/17/2024 mammogram, 06/01/2023 mammogram, and 04/29/2022 mammogram - [facility]. The breasts are heterogeneously dense, which may obscure small masses (category c / 51-75% glandular tissue). There are benign appearing calcifications in the left breast in the middle depth in the lower inner quadrant that are not significantly changed. There is a biopsy site marker on the left breast in the middle depth in the inner aspect. No significant masses, calcifications, or other findings are seen in the breast. IMPRESSION: INCOMPLETE: NEED ADDITIONAL IMAGING EVALUATION There is no definite mammographic abnormality seen in the left breast to correspond with the breast MRI finding described at the 5-6 o'clock , however, ultrasound is recommended for further evaluation and is scheduled to immediately follow this examination. Based on the Tyrer Cuzick model (a risk assessment model) the patient's lifetime risk is 10.8% and her 10 year risk is 7.4%. According to the ACR, ACS, and NCCN guidelines, an annual breast MRI exam along with mammogram is recommended if the patient's lifetime risk is 20% or greater. This exam was interpreted at Station ID: [id number]. NOTE: For mammograms, a report in lay terms will be sent to the patient. Approximately 15% of breast malignancies will not be visualized mammographically. In the management of a palpable breast mass, a negative mammogram must not discourage biopsy of a clinically suspicious lesion. Electronically Signed By: Rodríguez Alejandro M.D. at/:06/15/2024 16:14:17 letter sent: Additional Imaging Needed ACR BI-RADS Category 0: Incomplete: Need Additional Imaging Evaluation
--- NOTE | 2024-06-15 10:41 | DI.US.S_ITS ---
Patient Name: SHERRON SULLIVAN date: 1950 Sex: F Attending Physician: Vikas Indications: Date: 06/15/2024 16:49 At the request of: MARCELA REED Procedure: US breast LT limited LIMITED ULTRASOUND OF LEFT BREAST: 06/15/2024 CLINICAL: Abnormal MRI. Comparison is made to exams dated: 06/15/2024 mammogram, 05/26/2024 breast MRI, 05/17/2024 ultrasound, 05/17/2024 mammogram, 06/01/2023 mammogram, and 05/11/2022 mammogram - [facility]. Color flow and real-time ultrasound of the left breast 8 o'clock region were performed. Pulliam scale images of the real-time examination were reviewed. There is a 0.8 cm x 0.4 cm x 0.5 cm oval mass with lobulated margins in the left breast at 8 o'clock posterior depth 6 cm from the nipple. This oval mass is hypoechoic. Color flow imaging demonstrates that there is no vascularity present. This mass may or may not correlate with MRI findings described at the 5-6 o'clock position and of similar size. No definite correlate on comparison MRI at the 8 o'clock position. No axillary adenopathy seen on recent breast MRI. IMPRESSION: SUSPICIOUS The 0.8 cm x 0.4 cm x 0.5 cm oval mass in the left breast is at a low suspicion for malignancy. An ultrasound guided biopsy is recommended. Will correlate position of this mass on mammogram at time of post clip imaging and depending on the pathology results, will likely recommend 6 month follow up MRI of the 5-6 o'clock finding to ensure stability. Findings and recommendations were discussed telephonically with the patient by Dr. Alejandro during today's examination. Continued Report - Page 2 of 2 Patient Name: SHERRON SULLIVAN date: 1950 Sex: F Attending Physician: Vikas Indications: Date: 06/15/2024 16:49 At the request of: MARCELA REED Procedure: US breast LT limited This exam was interpreted at Station ID: [id number]. Electronically Signed By: Rodríguez Alejandro M.D. aty/:06/15/2024 16:49:21 letter sent: Biopsy Required ACR BI-RADS Category 4A: Suspicious
== END ==
PROVIDERS: PCP Internal Medicine; Referring Provider Internal Medicine; Visit Provider Internal Medicine
DX: R92.8 Other abnormal and inconclusive findings on diagnostic imaging of breast (principal); R92.333 Mammographic heterogeneous density, bilateral breasts; N63.24 Unspecified lump in the left breast, lower inner quadrant
CPT/HCPCS: 76642; 77065; G0279

== ENCOUNTER → 2024-06-23 | Outpatient (CLI) | payer MEDICARE, OTHER, SELFPAY ==
--- NOTE | 2024-06-23 | PATH_ITS ---
[facility] Accession Number: [id number] No. of containers..01 Tissue . 01 Material submitted: . breast - LEFT BREAST 8:00 6 CMFN . 01 Diagnosis: LEFT BREAST, 8 O'CLOCK, 6 CM FN, CORE NEEDLE BIOPSY: Benign breast tissue with fibrocystic changes including adenosis, cyst wall and fibrosis. Microcalcifications present in association with nonneoplastic breast tissue. No evidence of atypical hyperplasia, in situ or invasive carcinoma. MRV 06/27/2024 1457 Local . 01 Comment: Dr. Waterman also reviewed this case and agrees with the interpretation. . 01 Electronically signed: . Shirley Mei MD, Pathologist NPI- [id number] . 01 Gross description: . Received in formalin, labeled with two patient identifiers and left breast 8 o'clock 6 cm FN per specimen container lid, and consists of seven sawant-yellow fibrofatty soft tissue cores aggregating to 1.5 x 1.0 x 0.1 cm. The specimens are entirely submitted in cassette A1. . The specimen was removed on 06/23/2024 at 9:00 a.m. The time in formalin and total fixation time is approximately 53 hours. ([id number]) /FRR 06/24/2024 1445 Local . 01 Microscopic: . Immunohistochemical stains were performed to characterize glands of interest. All control stains showed appropriate reactivity. . RESULTS: P63: Highlights myoepithelial cells. CK5/6: Variably positive in the ductules of interest. . INTERPRETATION: The immunophenotype is consistent with benign ductules. . * This test was developed and the performance characteristics were validated by [employer]. It has not been cleared or approved by the U.S. Food and Drug Administration. . 01 Pathologist provided ICD-10: N64.9 . 01 CPT . 086691, V58777, V06197 Specimen Comment: A courtesy copy of this report has been sent to [phone] Performed at: [address] [id number] MD Jason Lopez MD Phone: [phone]
--- NOTE | 2024-06-23 13:39 | DI.US.S_ITS ---
PROCEDURE: US BX BREAST PERC W VAC DEVICE COMPARISON: None. INDICATIONS: LEFT BREAST MASS 8:00 BIOPSY FINDINGS: IMPRESSION: Dictated by: Hilario Barcenas M.D. on 09/01/2024 at 14:05 Approved by: Hilario Barcenas M.D. on 09/01/2024 at 14:06
--- NOTE | 2024-06-23 13:39 | DI.MG.S_ITS ---
UNILATERAL LEFT DIGITAL DIAGNOSTIC MAMMOGRAM 3D/2D POST-EXCISIONAL BIOPSY: 06/23/2024 CLINICAL: Post Left breast ultrasound biopsy, clip placement imaging. Comparison is made to exams dated: 06/15/2024 ultrasound, 06/15/2024 mammogram, 05/26/2024 breast MRI, and 05/17/2024 mammogram - [facility]. A postprocedural mammogram shows a biopsy clip in the left breast at the expected location of the biopsied abnormality noted on the limited left breast ultrasound from 06/15/24. IMPRESSION: BENIGN Biopsy in clip in expected location of the 0.8 cm oval mass of the left breast at 8'o clock 6 cm from the nipple. This exam was interpreted at Station ID: [id number]. NOTE: For mammograms, a report in lay terms will be sent to the patient. Approximately 15% of breast malignancies will not be visualized mammographically. In the management of a palpable breast mass, a negative mammogram must not discourage biopsy of a clinically suspicious lesion. Electronically Signed By: Hilario Barcenas M.D. sd/:06/23/2024 16:25:52 ACR BI-RADS Category 2: Benign
== END ==
PROVIDERS: PCP Internal Medicine; Referring Provider Internal Medicine; Visit Provider Internal Medicine
DX: R92.8 Other abnormal and inconclusive findings on diagnostic imaging of breast (principal); N60.22 Fibroadenosis of left breast; N60.32 Fibrosclerosis of left breast; N63.24 Unspecified lump in the left breast, lower inner quadrant; R23.4 Changes in skin texture
CPT/HCPCS: 19083; 77065

== ENCOUNTER 2025-01-22 16:13 | Inpatient (IN) | payer MEDICARE, OTHER, SELFPAY ==
[2025-01-22] VITALS (13 sets, daily range): BP systolic 128–161; BP diastolic 57–102; PULSE 65–87; RESP 17–30; TEMP 37; O2SAT 96–99; BMI 22.8
[2025-01-22 16:56] LABS: Add Manual Diff / Slide Review NO; Basophils Absolute Auto 100 /uL (0-100); Basophils Percent Auto 0.7 % (0-2); Eosinophils Absolute Auto 200 /uL (0-450); Eosinophils Percent Auto 2.5 % (2-4); Hematocrit 40.1 % (36-46); Hemoglobin 13.9 g/dL (12.0-16.0); Lymphocytes Absolute Auto 1200 /uL (1100-4500); Lymphocytes Percent Auto 16.6 % (25-40); Mean Corpuscular HGB Conc 34.6 % (30-36); Mean Corpuscular Hemoglobin 38.1 PG (26-34); Mean Corpuscular Volume 110.2 fL (80-100); Monocytes Absolute Auto 800 /uL (0-900); Monocytes Percent Auto 10.9 % (3-14); Neutrophils Absolute Auto 5100 /uL (1500-7000); Neutrophils Percent Auto 69.3 % (50-75); Platelet Count 160 X10^3/uL (150-400); Red Blood Cell Count 3.64 X10^6/uL (4.0-5.2); Red Cell Distribution Width 12.6 % (11.6-14.8); White Blood Cell Count 7.4 X10^3/uL (4.5-11.0)
[2025-01-22 17:01] LABS: Alanine Aminotransferase 53 IU/L (<35); Albumin 4.6 g/dL (3.5-5.0); Albumin Globulin Ratio 1.3 (1.0-2.8); Alkaline Phosphatase 104 U/L (38-126); Aspartate Aminotransferase 76 IU/L (14-36); BUN Creatinine Ratio 18.2 (6-22); Bilirubin Total 1.1 mg/dL (0.2-1.3); Blood Urea Nitrogen 10 mg/dL (7-17); Calcium 9.9 mg/dL (8.4-10.2); Carbon Dioxide 28 mmol/L (22-32); Chloride 94 mmol/L (98-107); Estimated Glomerular Filt Rate > 60 mL/min (>60); Globulin 3.6 g/dL (1.7-4.1); Glucose 114 mg/dL (70-99); HEMOLYSIS < 15 (0-50); Lipase 179 U/L (23-300); Potassium 4.1 mmol/L (3.4-5.1); Sodium 131 mmol/L (137-145); Total Protein 8.2 g/dL (6.3-8.2)
[2025-01-22 17:33] LABS: Microcytosis 3+; Platelet Estimate Adequate on smear
--- NOTE | 2025-01-22 20:35 | DI.CT.S_ITS ---
PROCEDURE: CT ABDOMEN PELVIS WO CON INDICATIONS: abd pain TECHNIQUE: After the administration of oral contrast, 5 mm thick sections acquired from the diaphragms to the symphysis. 5 mm coronal and sagittal reformats were performed. For radiation dose reduction, the following was used: automated exposure control, adjustment of mA and/or kV according to patient size. COMPARISON: None. FINDINGS: Image quality: Diagnostic. Lower Chest: Bilateral lower lung reticular densities and ground-glass density. ABDOMEN: Liver: Signs of diffuse hepatocellular disease. No focal lesion seen. Gallbladder: Multiple small calculi in the gallbladder. Biliary ducts: No biliary dilation. Pancreas: No ductal dilation. Spleen: Size is within normal limits. Adrenal Glands: No adrenal nodules. Kidneys and Ureters: No hydronephrosis. No contour-deforming mass. Stomach and Bowel: There is no bowel dilatation. There is diverticulosis seen especially in the left colon. There are [id number] inflammatory changes about a diverticulum in the mid to distal descending colon, also with mild inflammatory changes about a diverticulum in the mid sigmoid colon. No fluid collection. Peritoneum: No abnormal intraperitoneal fluid. No free air. Ventral Wall: No significant hernia. Abdominal Nodes: No retroperitoneal or mesenteric adenopathy by size criteria. Vessels: Aorta and inferior vena cava are normal in size. PELVIS: Pelvic Organs: Unremarkable. Bladder: Unremarkable. Pelvic Nodes: No enlarged lymph nodes. Miscellaneous: No inguinal hernias are seen. Bones: No aggressive osseous abnormality. IMPRESSION: 1. There is acute diverticulitis in the mid to distal descending colon as well as in the sigmoid colon. No signs of abscess or perforation. 2. Probable chronic interstitial lung disease, can be further assessed with high-resolution chest CT in 6 weeks. 3. Cirrhotic liver. Cholelithiasis. Dictated by: Walt Frederick M.D. on 01/22/2025 at 20:48 Approved by: Walt Frederick M.D. on 01/22/2025 at 20:52
--- NOTE | 2025-01-22 21:32 | ED.ABDPAIN ---
HPI - Abdominal Pain General Chief Complaint: Abdominal Pain Stated Complaint: Left side severe abd pain Time Seen by Provider: 01/22/25 20:14 Source: patient Mode of arrival: Ambulatory History of Present Illness HPI narrative: 74-year-old female with history of hypercholesterolemia, fatty liver, now day 4 of oral Augmentin for upper respiratory infection from her PCP, developed left lower quadrant pain nontraumatic today. No painful or frequent urination. No history of kidney stones recalled. No history of colitis or diverticulitis. She is not having diarrhea, black stools, red stools. No nausea or vomiting. Increasing pain. She has not missed any doses of her recent antibiotics. Related Data Home Medications ?Medication ?Instructions ?Recorded ?Confirmed atenolol 25 mg tablet 25 - 50 mg PO DAILY 07/10/20 01/23/25 estradiol 0.05 mg/24 hr semiweekly 1 mg transdermal 2XW 07/10/20 01/23/25 transdermal patch cyclosporine 0.05 % eye drops in a drp 01/23/25 dropperette (Restasis) ezetimibe 10 mg tablet 10 mg PO DAILY 01/23/25 01/23/25 Previous Rx's ?Medication ?Instructions ?Recorded albuterol sulfate 90 mcg/actuation 2 puff inhalation Q4-6H PRN 08/09/23 aerosol inhaler shortness of breath or wheezing #6.7 grams Allergies Allergy/AdvReac Type Severity Reaction Status Date / Time Sulfa (Sulfonamide Allergy Severe facial Verified 01/22/25 16:21 Antibiotics) swelling oxycodone AdvReac Severe Hives Verified 01/22/25 16:21 rosuvastatin AdvReac Severe Muscle Pain Verified 01/22/25 16:21 NSAIDS (Non-Steroidal AdvReac Intermediate Rash Verified 01/22/25 16:21 Anti-Inflamma aspirin AdvReac Unknown Gastrointestinal Verified 01/22/25 16:21 Upset codeine AdvReac Unknown Hives Verified 01/22/25 16:21 hydrocodone AdvReac Unknown Hives Verified 01/22/25 16:21 prednisone AdvReac Unknown sleep Verified 01/22/25 16:21 walking/talking Patient History Medical History Asthma COVID-19 virus infection (12/2021) DVT (deep venous thrombosis) Osteoporosis Right tennis elbow Surgical History H/O left wrist surgery H/O right wrist surgery History of hysterectomy Hx of appendectomy Hx of arthroscopy of left knee Hx of arthroscopy of right knee Hx of removal of cyst S/P excision of Garcia's neuroma Social History household members: spouse Smoking Status: Never smoker alcohol intake: current alcohol intake frequency: a few times a week Exam Narrative Exam Narrative: GENERAL: Well-developed patient, in mild distress. HEAD: Atraumatic. Normocephalic. EYES: Pupils equal round and reactive. Extraocular motions intact. No scleral icterus. No injection or drainage. ENT: Nose without bleeding, purulent drainage. Throat without erythema, tonsillar hypertrophy or exudate. Airway patent. NECK: Trachea midline. Non tender CARDIOVASCULAR: Regular rate and rhythm without murmurs, gallops, or rubs. RESPIRATORY: Clear to auscultation. Breath sounds equal bilaterally. No wheezes, rales, or rhonchi. GASTROINTESTINAL: Tenderness left lower quadrant, some rebound effect, generally not distended. Hypoactive bowel tones without rushes or tinkles. EXTREMITIES: No edema or joint tenderness. BACK: Nontender without deformity or crepitance. No flank tenderness. NEURO: AOx3. Motor functions grossly nonfocal SKIN: No rash or erythema of visible areas Initial Vital Signs Initial Vital Signs: Vital Signs Temperature 98.6 F 01/22/25 16:21 Pulse Rate 81 01/22/25 16:21 Respiratory Rate 17 01/22/25 16:21 Blood Pressure 161/70 H 01/22/25 16:21 Pulse Oximetry 98 01/22/25 16:21 Oxygen Delivery Method Room Air 01/22/25 16:21 Course Orders Ordered: ED Orders 01/23/25 08:16 Basic Metabolic Panel DAILY Magnesium DAILY 01/24/25 07:00 Basic Metabolic Panel DAILY Magnesium DAILY 01/25/25 07:00 Basic Metabolic Panel DAILY Magnesium DAILY Albuterol (Albuterol 2.5 Mg/3 Ml Neb (Adult)) 2.5 mg INH [id number] PRN PRN Reason: Dyspnea Atenolol (Atenolol 25 Mg Tablet) 25 mg PO DAILY SIRENA Last Admin: 01/23/25 09:16 Dose: Not Given Documented By: MARIBELL Benzonatate (Benzonatate 100 Mg Capsule) 100 mg PO TID PRN PRN Reason: Cough Hydromorphone HCl (Hydromorphone 0.5 Mg Inj) 0.5 mg IV Q2H PRN PRN Reason: Pain, Severe (7-10) Sodium Chloride (Normal Saline 0.9%) 1,000 mls @ 100 mls/hr IV CONT [facility] Last Admin: 01/23/25 11:49 Dose: 100 mls/hr Documented By: Infusion: 01/23/25 11:16 Dose: Infused Documented By: Admin: 01/23/25 01:16 Dose: 100 mls/hr Documented By: HEIDY Piperacillin Sod/Tazobactam (Sod 3.375 gm/ Sodium Chloride) 100 mls @ 25 mls/hr IV Q8H [facility] Last Admin: 01/23/25 11:46 Dose: 25 mls/hr Documented By: Infusion: 01/23/25 06:10 Dose: Infused Documented By: Admin: 01/23/25 02:06 Dose: 25 mls/hr Documented By: HEIDY Naloxone HCl (Naloxone 0.4 Mg/Ml Vial) 0.2 mg IV Q2MIN PRN PRN Reason: Opiate Reversal Ondansetron HCl (Ondansetron 4 Mg/2 Ml Inj) 4 mg IV Q8HR PRN PRN Reason: Nausea And Vomiting Oxycodone HCl (Oxycodone Ir 5 Mg Tablet) 5 mg PO Q3H PRN PRN Reason: Pain, Moderate (4-6) Discontinued Medications Acetaminophen (Acetaminophen 325 Mg Tablet) 975 mg PO NOW ONE Stop: 01/23/25 01:30 Last Admin: 01/23/25 01:32 Dose: 975 mg Documented By: HEIDY Albuterol (Albuterol 2.5 Mg/3 Ml Neb (Adult)) 2.5 mg INH RTQ4HR PRN PRN Reason: Shortness Of Breath Or Wheezing Sodium Chloride (Normal Saline 0.9%) 1,000 mls @ 1,000 mls/hr IV BOLUS ONE Stop: 01/22/25 22:00 Last Infusion: 01/22/25 23:08 Dose: Infused Documented By: Admin: 01/22/25 21:35 Dose: 1,000 mls/hr Documented By: HEIDY Piperacillin Sod/Tazobactam (Sod 4.5 gm/ Sodium Chloride) 100 mls @ 200 mls/hr IV NOW ONE Stop: 01/22/25 21:02 Last Infusion: 01/22/25 22:11 Dose: Infused Documented By: Admin: 01/22/25 21:34 Dose: 200 mls/hr Documented By: HEIDY Magnesium Chloride (Magnesium Chloride 64 Mg Tablet) 128 mg PO NOW ONE Stop: 01/23/25 12:01 Non-Formulary Medication (Albuterol Sulfate) 2 puff INHALATION Q4-6H PRN PRN Reason: shortness of breath or wheezing Ondansetron HCl (Ondansetron 4 Mg/2 Ml Inj) 4 mg IV NOW PRN PRN Reason: Nausea And Vomiting Ondansetron HCl (Ondansetron 4 Mg Odt) 4 mg PO NOW PRN PRN Reason: Nausea And Vomiting Vital Signs Vital signs: Vital Signs - 8 hr 01/22/25 16:21 Temperature 98.6 F Pulse Rate 81 Respiratory Rate 17 Blood Pressure 161/70 H Pulse Oximetry 98 Oxygen Delivery Method Room Air MDM - Abdominal Pain Lab Data Attestation: I reviewed the patient's lab results. Lab results narrative: White blood cell count 7400, hemoglobin 13.9, platelets adequate. Glucose 114. BUN 10 with creatinine 0.55 normal renal function. Electrolytes low sodium 131, potassium 4.1 normal. Serum CO2 28 normal. Mild transaminitis, otherwise normal liver functions. Lipase normal. Urine dip normal. 01/22/25 16:37 01/23/25 08:16 Labs: Lab Results 01/22/25 01/22/25 Range/Units 16:37 21:29 WBC 7.4 (4.5-11.0) X10^3/uL RBC 3.64 L (4.0-5.2) X10^6/uL Hgb 13.9 (12.0-16.0) g/dL Hct 40.1 (36-46) % MCV 110.2 H (80-100) fL MCH 38.1 H (26-34) PG MCHC 34.6 (30-36) % RDW 12.6 (11.6-14.8) % Plt Count 160 (150-400) X10^3/uL Neut % (Auto) 69.3 (50-75) % Lymph % (Auto) 16.6 L (25-40) % [place] % (Auto) 10.9 (3-14) % Eos % (Auto) 2.5 (2-4) % Baso % (Auto) 0.7 (0-2) % Neut # (Auto) 5100 (2353-6261) /uL Lymph # (Auto) 1200 (1008-5058) /uL [place] # (Auto) 800 (0-900) /uL Eos # (Auto) 200 (0-450) /uL Baso # (Auto) 100 (0-100) /uL Platelet Estimate Adequate on smear RBC Morphology See below Microcytosis 3+ H Sodium 131 L (137-145) mmol/L Potassium 4.1 (3.4-5.1) mmol/L Chloride 94 L (98-107) mmol/L Carbon Dioxide 28 (22-32) mmol/L BUN 10 (7-17) mg/dL Creatinine 0.55 (0.52-1.04) mg/dL Estimated GFR > 60 (>60) mL/min BUN/Creatinine Ratio 18.2 (6-22) Glucose 114 H (70-99) mg/dL Lactate 1.2 (0.7-2.1) mmol/L Calcium 9.9 (8.4-10.2) mg/dL Total Bilirubin 1.1 (0.2-1.3) mg/dL AST 76 H (14-36) IU/L ALT 53 H (<35) IU/L Alkaline Phosphatase 104 (38-126) U/L Total Protein 8.2 (6.3-8.2) g/dL Albumin 4.6 (3.5-5.0) g/dL Globulin 3.6 (1.7-4.1) g/dL Albumin/Globulin Ratio 1.3 (1.0-2.8) Lipase 179 (23-300) U/L Point of care testing: Urine Dip Bedside Urine Glucose Negative Bedside Urine Bilirubin - Negative Bedside Urine Ketone - Negative Urine Specific [place] 1.010 Bedside Urine Occult Blood - Negative Bedside Urine pH 6.5 Bedside Urine Protein - Negative Bedside Urine Urobilinogen - Negative Bedside Urine Nitrite - Negative Bedside Urine Leukocytes - Negative Esterase Imaging Data CT scan - abdomen/pelvis: Radiologist's Impression: [address] [address] [address] Scan Report Signed Patient: Yesica Cardona MR#: [id number] : 1950 Acct:[id number] Age/Sex: 74 / F Date of Service: 01/22/25 Loc: ED Accession Number: [id number] Procedure: CT abdomen pelvis wo con Ordering Provider: Geo Beal MD PROCEDURE: CT ABDOMEN PELVIS WO CON INDICATIONS: abd pain TECHNIQUE: After the administration of oral contrast, 5 mm thick sections acquired from the diaphragms to the symphysis. 5 mm coronal and sagittal reformats were performed. For radiation dose reduction, the following was used: automated exposure control, adjustment of mA and/or kV according to patient size. COMPARISON: None. FINDINGS: Image quality: Diagnostic. Lower Chest: Bilateral lower lung reticular densities and ground-glass density. ABDOMEN: Liver: Signs of diffuse hepatocellular disease. No focal lesion seen. Gallbladder: Multiple small calculi in the gallbladder. Biliary ducts: No biliary dilation. Pancreas: No ductal dilation. Spleen: Size is within normal limits. Adrenal Glands: No adrenal nodules. Kidneys and Ureters: No hydronephrosis. No contour-deforming mass. Stomach and Bowel: There is no bowel dilatation. There is diverticulosis seen especially in the left colon. There are [id number] inflammatory changes about a diverticulum in the mid to distal descending colon, also with mild inflammatory changes about a diverticulum in the mid sigmoid colon. No fluid collection. Peritoneum: No abnormal intraperitoneal fluid. No free air. Ventral Wall: No significant hernia. Abdominal Nodes: No retroperitoneal or mesenteric adenopathy by size criteria. Vessels: Aorta and inferior vena cava are normal in size. PELVIS: Pelvic Organs: Unremarkable. Bladder: Unremarkable. Pelvic Nodes: No enlarged lymph nodes. Miscellaneous: No inguinal hernias are seen. Bones: No aggressive osseous abnormality. IMPRESSION: 1. There is acute diverticulitis in the mid to distal descending colon as well as in the sigmoid colon. No signs of abscess or perforation. 2. Probable chronic interstitial lung disease, can be further assessed with high-resolution chest CT in 6 weeks. 3. Cirrhotic liver. Cholelithiasis. Dictated by: Walt Frederick M.D. on 01/22/2025 at 20:48 Approved by: Walt Frederick M.D. on 01/22/2025 at 20:52 [facility] Narrative Medical decision making narrative: 74-year-old female with left lower quadrant nontraumatic abdominal pain, some tenderness left lower quadrant, despite day for oral Augmentin prescribed for respiratory/sinus indication as outpatient. Afebrile, sirs screen negative. Some tenderness on exam however. Labs pending. Consider imaging. Initial labs: White blood cell count 7400, hemoglobin 13.9, platelets adequate. Glucose 114. BUN 10 with creatinine 0.55 normal renal function. Electrolytes low sodium 131, potassium 4.1 normal. Serum CO2 28 normal. Mild transaminitis, otherwise normal liver functions. Lipase normal. Urine dip normal. Lactate 1.[address] abdomen and pelvis noncontrast ordered, history of contrast allergy. CT abdomen and pelvis. IMPRESSION: 1. There is acute diverticulitis in the mid to distal descending colon as well as in the sigmoid colon. No signs of abscess or perforation. 2. Probable chronic interstitial lung disease, can be further assessed with high-resolution chest CT in 6 weeks. 3. Cirrhotic liver. Cholelithiasis. See radiology report. Development of acute diverticulitis mid distal colon without perforation or abscess, significant tenderness on exam, despite oral Augmentin antibiotic. Consider admission. Patient amenable to admission. We will query hospitalist. [id number], case discussed with hospitalist Dr. Underwood who accepts patient for admission Discharge Plan Departure Patient Disposition: Admitted as Observation Clinical Impression: Diverticulitis Admit Date/Time: 01/22/25 22:24 Admit Provider: Juan Underwood
[2025-01-22] MEDS: PIPERACILLIN/TAZO 4.5 GM in SODIUM CHLORIDE 0.9% 100 ML IV (21:34)
[2025-01-22] MEDS: SODIUM CHLORIDE 0.9% 1,000 ML 1000 ML IV (21:35)
[2025-01-22 21:55] LABS: Lactate (Lactic Acid) 1.2 mmol/L (0.7-2.1)
[2025-01-23] VITALS (28 sets, daily range): BP systolic 105–148; BP diastolic 48–88; PULSE 56–81; RESP 2–33; TEMP 36.4–36.7; O2SAT 94–100; BMI 22.8
[2025-01-23] MEDS: SODIUM CHLORIDE 0.9% 1,000 ML 100 ML IV ×2 (01:16→11:49)
[2025-01-23] MEDS: ACETAMINOPHEN 325 MG TABLET 975 MG PO (01:32)
[2025-01-23] MEDS: PIPERACILLIN/TAZO 3.375 GM in SODIUM CHLORIDE 0.9% 100 ML IV ×3 (02:06→17:53)
--- NOTE | 2025-01-23 02:15 | P.HP_ITS ---
History of Present Illness History of Present Illness Chief complaint: Left side severe abd pain Narrative: 74 years old female with history of hyperlipidemia, fatty liver, asthma, presented to the ER with left lower quadrant abdominal pain started earlier today. The patient had recent upper respiratory infection and was started on Augmentin by her PCP, now day 4. Denies any fever, nausea, vomiting, diarrhea, constipation, shortness of breath or chest pain. Initial labs shows WBC 7.4, hemoglobin 13.9, glucose 114, creatinine 0.55, potassium 4.1, mild transaminitis, lipase normal, urine normal, lactic acid 1.2. CT of the abdomen shows acute diverticulitis in the mid to distal descending colon as well as in the sigmoid colon. No signs of abscess or perforation. In the ER the patient was started on Zosyn and was started to admitted for further management. [facility] Medical History Asthma COVID-19 virus infection (12/2021) DVT (deep venous thrombosis) Osteoporosis Right tennis elbow Surgical History H/O left wrist surgery H/O right wrist surgery History of hysterectomy Hx of appendectomy Hx of arthroscopy of left knee Hx of arthroscopy of right knee Hx of removal of cyst S/P excision of Garcia's neuroma Social History household members: spouse alcohol intake: current Meds Home Medications and Allergies Home Medications Medication Instructions Recorded Confirmed Type atenolol 25 mg tablet 25 - 50 mg PO DAILY 07/10/20 08/07/22 History estradiol 0.05 mg/24 hr semiweekly 1 mg transdermal 2XW 07/10/20 08/07/22 History transdermal patch albuterol sulfate 90 mcg/actuation 2 puff inhalation Q4-6H PRN 08/09/23 Rx aerosol inhaler shortness of breath or wheezing #6.7 grams benzonatate 100 mg capsule 100 mg PO BID-TID PRN cough #30 08/09/23 Rx caps Allergies Allergy/AdvReac Type Severity Reaction Status Date / Time Sulfa (Sulfonamide Allergy Severe facial Verified 01/22/25 16:21 Antibiotics) swelling oxycodone AdvReac Severe Hives Verified 01/22/25 16:21 rosuvastatin AdvReac Severe Muscle Pain Verified 01/22/25 16:21 NSAIDS (Non-Steroidal AdvReac Intermediate Rash Verified 01/22/25 16:21 Anti-Inflamma aspirin AdvReac Unknown Gastrointestinal Verified 01/22/25 16:21 Upset codeine AdvReac Unknown Hives Verified 01/22/25 16:21 hydrocodone AdvReac Unknown Hives Verified 01/22/25 16:21 prednisone AdvReac Unknown sleep Verified 01/22/25 16:21 walking/talking Review of Systems Review of Systems ROS: Yes All systems reviewed with the patient and are negative except as otherwise documented Constitutional Constitutional: Reports as per HPI and Reports system reviewed and no additional complaints, except as documented Eyes Eyes: Reports as per HPI and Reports system reviewed and no additional complaints, except as documented ENT Ears, Nose, Mouth, and Throat: Yes as per HPI and Yes system reviewed and no additional complaints, except as documented Cardiovascular Cardiovascular: Reports system reviewed and no additional complaints, except as documented Respiratory Respiratory: Reports system reviewed and no additional complaints, except as documented Gastrointestinal Gastrointestinal: Reports system reviewed and no additional complaints, except as documented Genitourinary Genitourinary: Reports system reviewed and no additional complaints, except as documented Musculoskeletal Musculoskeletal: Reports system reviewed and no additional complaints, except as documented, Reports abnormal gait and Reports numbness Neurologic Neurologic: Reports system reviewed and no additional complaints, except as documented, Reports abnormal gait, Reports confusion and Reports numbness Psychiatric Psychiatric: Reports system reviewed and no additional complaints, except as documented and Reports confusion Exam Vital Signs (past 8 hours): - 01/22/25 19:58 01/22/25 20:00 01/22/25 20:00 Pulse Rate 71 68 Respiratory Rate 19 18 Blood Pressure 133/57 L Pulse Oximetry 96 98 Oxygen Delivery Method 01/22/25 20:42 01/22/25 20:48 01/22/25 20:48 Pulse Rate 87 71 Respiratory Rate 18 Blood Pressure 145/70 H Pulse Oximetry 99 Oxygen Delivery Method Room Air 01/22/25 21:00 01/22/25 21:00 01/22/25 21:30 Pulse Rate 66 68 Respiratory Rate 19 22 Blood Pressure 137/60 Pulse Oximetry 98 98 Oxygen Delivery Method 01/22/25 21:31 01/22/25 21:31 01/22/25 22:00 Pulse Rate 69 65 Respiratory Rate 22 18 Blood Pressure 131/63 Pulse Oximetry 98 97 Oxygen Delivery Method Room Air 01/22/25 22:00 01/22/25 22:30 01/22/25 22:30 Pulse Rate 67 Respiratory Rate 17 Blood Pressure 137/63 133/60 Pulse Oximetry 97 Oxygen Delivery Method 01/22/25 23:00 01/22/25 23:00 01/22/25 23:26 Pulse Rate 73 Respiratory Rate 20 Blood Pressure 132/58 L 137/102 H Pulse Oximetry 99 Oxygen Delivery Method Room Air 01/22/25 23:26 01/22/25 23:30 01/22/25 23:30 Pulse Rate 77 Respiratory Rate 30 H Blood Pressure 128/59 L 128/59 L Pulse Oximetry 98 Oxygen Delivery Method 01/22/25 23:30 01/23/25 00:00 01/23/25 00:00 Pulse Rate 77 74 Respiratory Rate 18 16 Blood Pressure 131/68 Pulse Oximetry 97 97 Oxygen Delivery Method Room Air 01/23/25 00:30 01/23/25 00:30 01/23/25 01:00 Pulse Rate 81 Respiratory Rate 24 Blood Pressure 141/88 H 127/60 Pulse Oximetry 97 Oxygen Delivery Method 01/23/25 01:00 01/23/25 01:28 01/23/25 01:28 Pulse Rate 71 74 Respiratory Rate 14 15 Blood Pressure 144/63 H Pulse Oximetry 97 99 Oxygen Delivery Method Room Air 01/23/25 01:30 01/23/25 01:30 Pulse Rate 70 Respiratory Rate 15 Blood Pressure 133/63 Pulse Oximetry 98 Oxygen Delivery Method Room Air Oxygen Delivery Method Room Air Const General: cooperative, comfortable and well developed Orientation: alert and oriented x3 HENMT Head: normal to inspection, normocephalic and atraumatic Face and sinus: normal facial exam Mouth: oral mucosae normal and moist mucous membranes Throat: posterior oropharynx normal Eyes General: appearance normal, both eyes and all related structures Pupils: PERRL EOM: EOM intact bilaterally Neck Neck: normal visual inspection and full ROM Chest Chest: normal inspection of the chest Resp Effort & Inspection: normal respiratory effort and able to speak in complete sentences Auscultation: clear to auscultation bilaterally Cardio Palpation: normal PMI Rate: regular rate Rhythm: regular rhythm Heart Sounds: S1 normal and S2 normal GI Inspection: normal to inspection Palpation: soft and no hepatosplenomegaly Auscultation: normal bowel sounds Skin General: no rashes or lesions noted Lesions: no lesions Rashes: no rashes Trauma: no lacerations or abrasions Neuro General: patient alert, patient awake, patient oriented x3 and no focal motor deficits Cranial Nerves: CN's II-XI intact bilaterally Cognition: normal cognition Speech: speech normal Gait: normal gait Motor: muscle tone normal throughout Sensory Exam: no sensory deficits noted Extrem General: full ROM and no calf tenderness Psych Appearance: grossly normal Mental Status: mental status grossly normal Speech and Movement: speech and movement normal Objective Labs 01/22/25 16:37 01/22/25 16:37 Labs: Laboratory Results - last 24 hr 01/22/25 01/22/25 16:37 21:29 WBC 7.4 RBC 3.64 L Hgb 13.9 Hct 40.1 MCV 110.2 H MCH 38.1 H MCHC 34.6 RDW 12.6 Plt Count 160 Neut % (Auto) 69.3 Lymph % (Auto) 16.6 L [place] % (Auto) 10.9 Eos % (Auto) 2.5 Baso % (Auto) 0.7 Neut # (Auto) 5100 Lymph # (Auto) 1200 [place] # (Auto) 800 Eos # (Auto) 200 Baso # (Auto) 100 Platelet Estimate Adequate on smear RBC Morphology See below Microcytosis 3+ H Sodium 131 L Potassium 4.1 Chloride 94 L Carbon Dioxide 28 BUN 10 Creatinine 0.55 Estimated GFR > 60 BUN/Creatinine Ratio 18.2 Glucose 114 H Lactate 1.2 Calcium 9.9 Total Bilirubin 1.1 AST 76 H ALT 53 H Alkaline Phosphatase 104 Total Protein 8.2 Albumin 4.6 Globulin 3.6 Albumin/Globulin Ratio 1.3 Lipase 179 Assessment & Plan Assessment & Plan narrative: Acute mid to distal descending and sigmoid colon diverticulitis -Admit to MedSurg -fluid rehydration and monitor electrolytes -supportive measures with pain control and antiemetics p.r.n -IV antibiotics with Zosyn -follow-up on the blood cultures -Advance diet as tolerable -monitor for bowel perforation (sign of peritonitis, severe abdominal pain, and pt becoming more toxic and clinically deteriorating) -cont home meds unless contraindicated -if the patient fail to improve in the next 48-72 hours or signs of worsening will order CT scan of the abdomen and pelvis to rule out any abscess or perforation -if the patient has cholo perforation will requests emergent surgical consult Care provided by Telehealth service using synchronized audio-video technology for this visit. Prior to the discussion the clinician obtained the patient's consent for Telehealth service. Supporting E/M code and modifier 95 for Telemedicine service documented. All requirements are met and documented. Time-Based Coding :: [TOTAL MINUTES] spent with patient and on the chart (including review of chart, obtaining history, exam, reviewing outside data, placing orders, documenting exam and treatment plan, and counseling patient) on [DATE]. Quality VTE Deep Vein Thrombosis/Pulmonary Embolism Present on Admission: No MIPS - Admit I confirm the patient?s Advance Care Plan is present, Code status is documented, Surrogate decision maker is in patient?s record [If Yes, STOP here]: Yes MIPS - Meds 'Current medications' to include all prescriptions, [id number] products, herbals, cannabis/cannabidiol products, and vitamin/mineral/dietary (nutritional) supplements. I have utilized all available resources to obtain, update, or review the patient?s current medications. [If Yes, STOP here]: Yes
[2025-01-23 08:55] LABS: BUN Creatinine Ratio 13.5 (6-22); Blood Urea Nitrogen 7 mg/dL (7-17); Calcium 8.7 mg/dL (8.4-10.2); Carbon Dioxide 26 mmol/L (22-32); Chloride 102 mmol/L (98-107); Estimated Glomerular Filt Rate > 60 mL/min (>60); Glucose 98 mg/dL (70-99); HEMOLYSIS < 15 (0-50); Magnesium 1.6 mg/dL (1.6-2.3); Potassium 3.8 mmol/L (3.4-5.1); Sodium 134 mmol/L (137-145)
--- NOTE | 2025-01-23 09:12 | PC.NURSE ---
Patient declined morning dose of atenolol stating that she only takes it at night for SVT
--- NOTE | 2025-01-23 15:22 | PM.HP.1 ---
History of Present Illness History of Present Illness Date Patient Seen: 01/23/25 Chief complaint: Left side severe abd pain secondary to diverticuli Narrative: Chief complaint: Left-sided abdominal pain secondary to diverticulitis History of present illness: 74 years old female with history of hyperlipidemia, fatty liver, asthma, presented to the ER with left lower quadrant abdominal pain started earlier today. The patient had recent upper respiratory infection and was started on Augmentin by her PCP, now day 4. Denies any fever, nausea, vomiting, diarrhea, constipation, shortness of breath or chest pain. Initial labs shows WBC 7.4, hemoglobin 13.9, glucose 114, creatinine 0.55, potassium 4.1, mild transaminitis, lipase normal, urine normal, lactic acid 1.2. CT of the abdomen shows acute diverticulitis in the mid to distal descending colon as well as in the sigmoid colon. No signs of abscess or perforation. In the ER the patient was started on Zosyn and was started to admitted for further management. Past medical surgical family and social history is see bottom of the note Review of systems: No fever or chills No weight loss or weight gain No difficulty swallowing No chest pain palpitations wheezing shortness and breath No paresthesia paresis No urinary symptoms Physical exam: No acute distress HEENT unremarkable Neck no JVD Unlabored respirations Localized tenderness left lower and left upper Abdomen extremities no edema Objective laboratory and imaging findings please see bottom of the note: Assessment and plan: Acute mid to distal descending and sigmoid colon diverticulitis -Admit to MedSurg -fluid rehydration and monitor electrolytes -supportive measures with pain control and antiemetics p.r.n -IV antibiotics with Zosyn -follow-up on the blood cultures -Advance diet as tolerable -monitor for bowel perforation (sign of peritonitis, severe abdominal pain, and pt becoming more toxic and clinically deteriorating) -cont home meds unless contraindicated -if the patient fail to improve in the next 48-72 hours or signs of worsening will order CT scan of the abdomen and pelvis to rule out any abscess or perforation -if the patient has cholo perforation will requests emergent surgical consult Time-Based Coding :: 55 minutes spent with patient and on the chart (including review of chart, obtaining history, exam, reviewing outside data, placing orders, documenting exam and treatment plan, and counseling patient). MIPS - Admit I confirm the patient?s Advance Care Plan is present, Code status is documented, Surrogate decision maker is in patient?s record [If Yes, STOP here]: Yes MIPS - Meds 'Current medications' to include all prescriptions, [id number] products, herbals, cannabis/cannabidiol products, and vitamin/mineral/dietary (nutritional) supplements. I have utilized all available resources to obtain, update, or review the patient?s current medications. [facility] Medical History Asthma COVID-19 virus infection (12/2021) DVT (deep venous thrombosis) Osteoporosis Right tennis elbow Surgical History H/O left wrist surgery H/O right wrist surgery History of hysterectomy Hx of appendectomy Hx of arthroscopy of left knee Hx of arthroscopy of right knee Hx of removal of cyst S/P excision of Garcia's neuroma Social History household members: spouse Smoking Status: Never smoker alcohol intake: current Meds Home Medications and Allergies Home Medications ?Medication ?Instructions ?Recorded ?Confirmed ?Type atenolol 25 mg tablet 25 - 50 mg PO DAILY 07/10/20 01/23/25 History estradiol 0.05 mg/24 hr semiweekly 1 mg transdermal 2XW 07/10/20 01/23/25 History transdermal patch albuterol sulfate 90 mcg/actuation 2 puff inhalation Q4-6H PRN 08/09/23 01/23/25 Rx aerosol inhaler shortness of breath or wheezing #6.7 grams cyclosporine 0.05 % eye drops in a drp 01/23/25 History dropperette (Restasis) ezetimibe 10 mg tablet 10 mg PO DAILY 01/23/25 01/23/25 History Allergies Allergy/AdvReac Type Severity Reaction Status Date / Time Sulfa (Sulfonamide Allergy Severe facial Verified 01/22/25 16:21 Antibiotics) swelling oxycodone AdvReac Severe Hives Verified 01/22/25 16:21 rosuvastatin AdvReac Severe Muscle Pain Verified 01/22/25 16:21 NSAIDS (Non-Steroidal AdvReac Intermediate Rash Verified 01/22/25 16:21 Anti-Inflamma aspirin AdvReac Unknown Gastrointestinal Verified 01/22/25 16:21 Upset codeine AdvReac Unknown Hives Verified 01/22/25 16:21 hydrocodone AdvReac Unknown Hives Verified 01/22/25 16:21 prednisone AdvReac Unknown sleep Verified 01/22/25 16:21 walking/talking Exam Vital Signs (past 8 hours): - 01/23/25 07:30 01/23/25 07:30 01/23/25 08:00 Temperature Pulse Rate 64 Respiratory Rate 20 Blood Pressure 148/66 H 142/68 H Pulse Oximetry 96 Oxygen Delivery Method Room Air Oxygen Flow Rate 01/23/25 08:00 01/23/25 08:30 01/23/25 08:30 Temperature Pulse Rate 56 L 74 Respiratory Rate 14 2 L Blood Pressure 131/68 Pulse Oximetry 98 98 Oxygen Delivery Method Oxygen Flow Rate 01/23/25 08:50 01/23/25 08:50 01/23/25 09:00 Temperature Pulse Rate 75 Respiratory Rate 17 Blood Pressure 107/67 118/62 Pulse Oximetry 98 Oxygen Delivery Method Oxygen Flow Rate 01/23/25 09:00 01/23/25 09:30 01/23/25 09:30 Temperature Pulse Rate 74 73 Respiratory Rate 20 Blood Pressure 122/60 Pulse Oximetry 96 96 Oxygen Delivery Method Room Air Oxygen Flow Rate 01/23/25 10:00 01/23/25 15:00 Temperature 97.6 F 97.7 F Pulse Rate 74 77 Respiratory Rate 15 14 Blood Pressure 126/64 107/56 L Pulse Oximetry 100 97 Oxygen Delivery Method Oxygen Flow Rate 0 0 Oxygen Delivery Method Room Air Oxygen Flow Rate 0 Objective Labs 01/22/25 16:37 01/23/25 08:16 Labs: Laboratory Results - last 24 hr 01/22/25 01/22/25 01/23/25 16:37 21:29 08:16 WBC 7.4 RBC 3.64 L Hgb 13.9 Hct 40.1 MCV 110.2 H MCH 38.1 H MCHC 34.6 RDW 12.6 Plt Count 160 Neut % (Auto) 69.3 Lymph % (Auto) 16.6 L Lawrence % (Auto) 10.9 Eos % (Auto) 2.5 Baso % (Auto) 0.7 Neut # (Auto) 5100 Lymph # (Auto) 1200 Lawrence # (Auto) 800 Eos # (Auto) 200 Baso # (Auto) 100 Platelet Estimate Adequate on smear RBC Morphology See below Microcytosis 3+ H Sodium 131 L 134 L Potassium 4.1 3.8 Chloride 94 L 102 Carbon Dioxide 28 26 BUN 10 7 Creatinine 0.55 0.52 Estimated GFR > 60 > 60 BUN/Creatinine Ratio 18.2 13.5 Glucose 114 H 98 Lactate 1.2 Calcium 9.9 8.7 Magnesium 1.6 Total Bilirubin 1.1 AST 76 H ALT 53 H Alkaline Phosphatase 104 Total Protein 8.2 Albumin 4.6 Globulin 3.6 Albumin/Globulin Ratio 1.3 Lipase 179 Assessment & Plan Time-Based Coding :: [TOTAL MINUTES] spent with patient and on the chart (including review of chart, obtaining history, exam, reviewing outside data, placing orders, documenting exam and treatment plan, and counseling patient) on [DATE]. Quality VTE Deep Vein Thrombosis/Pulmonary Embolism Present on Admission: No
[2025-01-23] MEDS: MAGNESIUM CHLORIDE 64 MG TABLET 128 MG PO (17:38)
--- NOTE | 2025-01-23 17:44 | PC.NURSE ---
Pt arrived at 0940'samia A?O Denies discomfort at this time IVF infusing as per MD order Pt independent in room; up to shower. Call light w/in reach. Pt calls appropriately for needs. Continue w/ plan of care.
[2025-01-24] MEDS: PIPERACILLIN/TAZO 3.375 GM in SODIUM CHLORIDE 0.9% 100 ML IV ×3 (02:33→22:19)
[2025-01-24] MEDS: ACETAMINOPHEN 325 MG TABLET 650 MG PO (03:04)
[2025-01-24 08:00] VITALS: BP 132/60; PULSE 63; RESP 17; TEMP 36.4; O2SAT 96
[2025-01-24] MEDS: atenoloL 25 MG TABLET PO (08:53)
[2025-01-24 08:58] LABS: BUN Creatinine Ratio 8.9 (6-22); Blood Urea Nitrogen 5 mg/dL (7-17); Calcium 9.2 mg/dL (8.4-10.2); Carbon Dioxide 25 mmol/L (22-32); Chloride 101 mmol/L (98-107); Estimated Glomerular Filt Rate > 60 mL/min (>60); Glucose 111 mg/dL (70-99); HEMOLYSIS < 15 (0-50); Magnesium 1.7 mg/dL (1.6-2.3); Potassium 3.7 mmol/L (3.4-5.1); Sodium 133 mmol/L (137-145)
--- NOTE | 2025-01-24 09:38 | CM.DANOTE ---
DCP Assessment note pt is a 74yo F admitted with diverticulitis getting IV abx. PCP Priyanka Figueredo Payer medicare and Rachid COLIN reviewed EMR. per chart review, pt lives indep with spouse in [place]. local son support. no DME at baseline. per EMR, A/O, indep in room. per chart/RN report, no identified barriers to safe dc home with family support. no identified CM needs at this time. P: anticipate dc home with family support when medically stable. CM team will continue to follow closely in case any DCP needs should arise. DIXIE Chowdhury Discharge Planning/Care Management CM Discharge Assessment Start: 01/23/25 01:24 Freq: Status: Active Protocol: Document 01/24/25 09:34 SL (Rec: 01/24/25 09:36 SL Desktop) Discharge Planning Assessment Assigned Discharge DIXIE Baez Medical Claims Examiner DPOA/Assigned Jefry Dickinson Designee Name Contact Information [phone] Advance Directives? No History Provided By Patient Prior Living House Arrangements Household Members spouse Type of Drives own vehicle transporation used prior to admit Independent with ADL Yes 's Is patient alert and Yes oriented? Barriers to No Discharge Discharge Plan Home Review Status In Process Please Provide Date 01/24/25 Initial DC Assessment Was Performed Next Review Type Continued Stay Review
--- NOTE | 2025-01-24 11:10 | DIET.CONS ---
Dietary Consultation Note Admission Date: 01/22/2025 22:24 Assessment: 74 y F admitted for diverticulitis. Dietitian screened for low MNA score. Met with pt at bedside. Reports is tolerating the full liquids, doing at least 50%+ of trays. Reports normal appetite and PO intake up until day before admission to hospital. Normal PO intake consist of breakfast (yogurt/oatmeal) and dinner (homemade). Has garden and is conscious about getting enough fiber daily. Has already done some research on diet with diverticulitis and diverticulosis. Reports no recent weight loss. Stable weight around 130-135 lb (59-61 kg) for many years. Ht: 162.56 cm Wt: 60 kg BMI: 22.8 UBW: 60-65 kg 2847-4685 per EMR wt hx Last BM: 01/19/25 (01/23/25 09:20) MNA: 10 Rogelio Score: 22 Diet: 01/22/25 16:27 NPO Diet Diet Modifications: NPO Type: NPO except for Meds 01/23/25 Breakfast Full Liquid Diet Diet Modifications: Nutrition Percent Meal Consumed 0% 01/23/25 18:00 Percent Meal Consumed 100% 01/23/25 17:56 Labs: RBC 3.64 X10^6/uL (4.0-5.2) L 01/22/25 16:37 Hgb 13.9 g/dL (12.0-16.0) 01/22/25 16:37 Hct 40.1 % (36-46) 01/22/25 16:37 Creatinine 0.56 mg/dL (0.52-1.04) 01/24/25 08:35 Lactate 1.2 mmol/L (0.7-2.1) 01/22/25 21:29 Nutrition Diagnosis: Decreased nutrient need (fiber) r/t alterations in GI tract aeb diverticulitis Interventions: -Reviewed lower fiber eating plan during flare up and then introducing fiber slowly back into diet when inflammation is resolved and maintaining adequate fiber (21 g per day based on age and gender) after flare up -Encouraged good protein sources and reviewed options based on diet order Monitoring/Evaluations: PO intakes Electronically Signed by: Zulay Mccurdy 01/24/25 11:10 Clinical Dietitian [address] [address]
[2025-01-24 12:00] VITALS: BP 131/63; PULSE 63; RESP 14; TEMP 36.2; O2SAT 95
--- NOTE | 2025-01-24 12:33 | P.PN_ITS ---
Subjective Subjective Date Patient Seen: 01/24/25 Interval history: Chief complaint: Left-sided abdominal pain secondary to diverticulitis History of present illness: 74 years old female with history of hyperlipidemia, fatty liver, asthma, presented to the ER with left lower quadrant abdominal pain started earlier today. The patient had recent upper respiratory infection and was started on Augmentin by her PCP, now day 4. Denies any fever, nausea, vomiting, diarrhea, constipation, shortness of breath or chest pain. Initial labs shows WBC 7.4, hemoglobin 13.9, glucose 114, creatinine 0.55, potassium 4.1, mild transaminitis, lipase normal, urine normal, lactic acid 1.2. CT of the abdomen shows acute diverticulitis in the mid to distal descending colon as well as in the sigmoid colon. No signs of abscess or perforation. In the ER the patient was started on Zosyn and was started to admitted for further management. Hospital course: 01/23-01/24: Had night sweat last night had to change the bed and her bed clothing still having bloating and pain after eating small amounts Basic metabolic profile unremarkable Review of systems: No weight loss or weight gain No difficulty swallowing No chest pain palpitations wheezing shortness and breath No paresthesia paresis No urinary symptoms Physical exam: No acute distress HEENT unremarkable Neck no JVD Unlabored respirations Localized tenderness in suprapubic region r Abdomen extremities no edema Objective laboratory and imaging findings please see bottom of the note: Assessment and plan: Acute mid to distal descending and sigmoid colon diverticulitis * Continue IV antibiotics due to continued sweats chills and symptoms of postprandial pain and tenderness Time-Based Coding :: 35 minutes spent with patient and on the chart (including review of chart, obtaining history, exam, reviewing outside data, placing orders, documenting exam and treatment plan, and counseling patient). Exam Vital Signs (past 8 hours): - 01/24/25 08:00 01/24/25 12:00 Temperature 97.5 F L 97.1 F L Pulse Rate 63 63 Respiratory Rate 17 14 Blood Pressure 132/60 131/63 Pulse Oximetry 96 95 Oxygen Flow Rate 0 0 Oxygen Delivery Method Room Air Oxygen Flow Rate 0 Objective Labs 01/22/25 16:37 01/24/25 08:35 Labs: Laboratory Results - last 24 hr 01/24/25 08:35 Sodium 133 L Potassium 3.7 Chloride 101 Carbon Dioxide 25 BUN 5 L Creatinine 0.56 Estimated GFR > 60 BUN/Creatinine Ratio 8.9 Glucose 111 H Calcium 9.2 Magnesium 1.7 PFSH Medical History Asthma COVID-19 virus infection (12/2021) DVT (deep venous thrombosis) Osteoporosis Right tennis elbow Surgical History H/O left wrist surgery H/O right wrist surgery History of hysterectomy Hx of appendectomy Hx of arthroscopy of left knee Hx of arthroscopy of right knee Hx of removal of cyst S/P excision of Garcia's neuroma Social History household members: spouse Smoking Status: Never smoker alcohol intake: current Assessment & Plan Time-Based Coding :: [TOTAL MINUTES] spent with patient and on the chart (including review of chart, obtaining history, exam, reviewing outside data, placing orders, documenting exam and treatment plan, and counseling patient) on [DATE]. Quality VTE Deep Vein Thrombosis/Pulmonary Embolism Present on Admission: No
[2025-01-24] MEDS: MAGNESIUM CHLORIDE 64 MG TABLET 128 MG PO (14:38)
[2025-01-24] MEDS: SODIUM CHLORIDE 0.9% FLUSH 10 ML IV (15:59)
--- NOTE | 2025-01-24 17:33 | PC.NURSE ---
Pt independent in room Denies discomfort. SL intact, patent. Tele D/C'd Call light w/in reach, pt calls appropriately for needs. Continue w/plan of care.
[2025-01-24 20:21] VITALS: BP 138/66; PULSE 66; RESP 18; TEMP 36.2; O2SAT 98
[2025-01-25] MEDS: PIPERACILLIN/TAZO 3.375 GM in SODIUM CHLORIDE 0.9% 100 ML IV ×2 (05:44→13:19)
--- NOTE | 2025-01-25 07:20 | P.PN_ITS ---
Subjective Subjective Interval history: History of present illness: 74 years old female with history of hyperlipidemia, fatty liver, asthma, presented to the ER with left lower quadrant abdominal pain started earlier today. The patient had recent upper respiratory infection and was started on Augmentin by her PCP, now day 4. Denies any fever, nausea, vomiting, diarrhea, constipation, shortness of breath or chest pain. Initial labs shows WBC 7.4, hemoglobin 13.9, glucose 114, creatinine 0.55, potassium 4.1, mild transaminitis, lipase normal, urine normal, lactic acid 1.2. CT of the abdomen shows acute diverticulitis in the mid to distal descending colon as well as in the sigmoid colon. No signs of abscess or perforation. In the ER the patient was started on Zosyn and was started to admitted for further management. Hospital course: 01/23-01/24: Had night sweat last night had to change the bed and her bed clothing still having bloating and pain after eating small amounts Basic metabolic profile unremarkable S: Pain is much improved. No nausea. No fevers overnight. Exam Vital Signs (past 8 hours): Oxygen Delivery Method Room Air Oxygen Flow Rate 0 Narrative Exam Narrative: NAD, alert and oriented. Fluent speech. Lungs are clear, normal rate and effort. Heart is regular, no murmur gallop or rub. Abdomen is soft, non distended. Minimal LLQ tenderness. Extremities are free of edema. Objective Labs 01/22/25 16:37 01/25/25 07:45 Labs: Laboratory Results - last 24 hr 01/24/25 08:35 Sodium 133 L Potassium 3.7 Chloride 101 Carbon Dioxide 25 BUN 5 L Creatinine 0.56 Estimated GFR > 60 BUN/Creatinine Ratio 8.9 Glucose 111 H Calcium 9.2 Magnesium 1.7 PFSH Medical History Right tennis elbow COVID-19 virus infection (12/2021) Osteoporosis Asthma DVT (deep venous thrombosis) Surgical History Hx of removal of cyst S/P excision of Garcia's neuroma Hx of appendectomy History of hysterectomy Hx of arthroscopy of left knee Hx of arthroscopy of right knee H/O left wrist surgery H/O right wrist surgery Social History household members: spouse Smoking Status: Never smoker alcohol intake: current Assessment & Plan Assessment & Plan narrative: 1. Acute mid to distal descending and sigmoid colon diverticulitis * Continue IV antibiotics due to continued sweats chills and symptoms of postprandial pain and tenderness * Possible discharge this afternoon after next dose of IV antibiotics if she does well for lunch. Asthma Remote DVT Time-Based Coding :: [TOTAL MINUTES] spent with patient and on the chart (including review of chart, obtaining history, exam, reviewing outside data, placing orders, documenting exam and treatment plan, and counseling patient) on [DATE]. Quality VTE Deep Vein Thrombosis/Pulmonary Embolism Present on Admission: No
[2025-01-25 07:30] VITALS: BP 128/53; PULSE 68; RESP 16; TEMP 36.4; O2SAT 99
[2025-01-25 08:21] LABS: BUN Creatinine Ratio 9.1 (6-22); Blood Urea Nitrogen 5 mg/dL (7-17); Calcium 9.5 mg/dL (8.4-10.2); Carbon Dioxide 23 mmol/L (22-32); Chloride 102 mmol/L (98-107); Estimated Glomerular Filt Rate > 60 mL/min (>60); Glucose 103 mg/dL (70-99); HEMOLYSIS < 15 (0-50); Magnesium 1.7 mg/dL (1.6-2.3); Sodium 133 mmol/L (137-145)
[2025-01-25] MEDS: atenoloL 25 MG TABLET PO (09:06)
--- NOTE | 2025-01-25 13:34 | PM.DS.1 ---
History of Present Illness History of Present Illness Chief complaint: Left side severe abd pain secondary to diverticuli Narrative: History of present illness: 74 years old female with history of hyperlipidemia, fatty liver, asthma, presented to the ER with left lower quadrant abdominal pain started earlier today. The patient had recent upper respiratory infection and was started on Augmentin by her PCP, now day 4. Denies any fever, nausea, vomiting, diarrhea, constipation, shortness of breath or chest pain. Initial labs shows WBC 7.4, hemoglobin 13.9, glucose 114, creatinine 0.55, potassium 4.1, mild transaminitis, lipase normal, urine normal, lactic acid 1.2. CT of the abdomen shows acute diverticulitis in the mid to distal descending colon as well as in the sigmoid colon. No signs of abscess or perforation. In the ER the patient was started on Zosyn and was started to admitted for further management. Discharge Providers Provider Date of admission: 01/22/25 22:24 Discharge Date: 01/25/25 Primary care physician: NATALI Alcantara Consults: None. Discharge provider: Zaki Gilmore MD Summary Hospital Course Discharge Diagnosis: 1. Acute mid to distal descending and sigmoid colon diverticulitis, improved. 2. Asthma. Hospital Course: 01/23-01/24: Had night sweat last night had to change the bed and her bed clothing still having bloating and pain after eating small amounts Basic metabolic profile unremarkable 01/25: Much less pain, improved. CBC normal. Stable for discharge with PO antibiotics. Status at Discharge Cognitive/behavioral status at discharge: oriented Functional status at discharge: independent ambulation Overall status at discharge: patient is back to baseline Time Spent with Patient Time spent: Greater than 30 minutes Exam Vital Signs (past 8 hours): - 01/25/25 07:30 Temperature 97.6 F Pulse Rate 68 Respiratory Rate 16 Blood Pressure 128/53 L Pulse Oximetry 99 Oxygen Flow Rate 0 Oxygen Delivery Method Room Air Oxygen Flow Rate 0 Narrative Exam Narrative: NAD, alert and oriented. Fluent speech. Lungs are clear, normal rate and effort. Heart is regular, no murmur gallop or rub. Abdomen is soft, non distended. Extremities are free of edema. Objective Imaging CT scan - abdomen: Radiologist's impression: 1. There is acute diverticulitis in the mid to distal descending colon as well as in the sigmoid colon. No signs of abscess or perforation. 2. Probable chronic interstitial lung disease, can be further assessed with high-resolution chest CT in 6 weeks. 3. Cirrhotic liver. Cholelithiasis. Labs 01/22/25 16:37 01/25/25 07:45 Labs: Laboratory Results - last 24 hr 01/25/25 07:45 Sodium 133 L Potassium 4.0 Chloride 102 Carbon Dioxide 23 BUN 5 L Creatinine 0.55 Estimated GFR > 60 BUN/Creatinine Ratio 9.1 Glucose 103 H Calcium 9.5 Magnesium 1.7 PFSH Medical History Right tennis elbow COVID-19 virus infection (12/2021) Osteoporosis Asthma DVT (deep venous thrombosis) Surgical History Hx of removal of cyst S/P excision of Garcia's neuroma Hx of appendectomy History of hysterectomy Hx of arthroscopy of left knee Hx of arthroscopy of right knee H/O left wrist surgery H/O right wrist surgery Social History household members: spouse Smoking Status: Never smoker alcohol intake: current Discharge Assessment & Plan Assessment and Plan Assessment: Sigmoid diverticulitis, improved. Discharge Plan Discharge Plan Patient Disposition: Home Provider Discharge Comment: Stable for discharge home, we will resume oral antibiotics for an additional 7 days. Close PCP follow up. Discharge orders & Medications Prescriptions: New amoxicillin-pot clavulanate 875-125 mg tablet 1 tab PO BID Qty: 14 0RF Continued atenolol 25 mg tablet 25 - 50 mg PO DAILY estradiol 0.05 mg/24 hr patch semiweekly 1 mg transdermal 2XW albuterol sulfate 90 mcg/actuation HFA aerosol inhaler 2 puff inhalation Q4-6H PRN (Reason: shortness of breath or wheezing) Qty: 6.7 0RF cyclosporine [Restasis] 0.05 % dropperette Patient Comments: [NO ORIGINAL SIG] ezetimibe 10 mg tablet 10 mg PO DAILY Follow up/Referrals: Jaimee Bean ARNP [Primary Care Provider, Family Practice] Visit Report/Discharge Packet Instructions: DI for Diverticulitis Stand Alone Forms: Patient Portal/API Discharge Data Primary Care Provider: Vikas,Jaimee Quality VTE Deep Vein Thrombosis/Pulmonary Embolism Present on Admission: No
--- NOTE | 2025-01-25 14:23 | PC.NURSE ---
Pt is A&OX4, VSS, afebrile. She is independent in her room and getting up and down to the bathroom. She reports pain is minimal to LLQ and L side improving, she states still sore but denies wanting any pain medications. She is able to tolerate some food items for breakfast and lunch No N/V/D. She states she has more tolerable food items at home. She is cleared for discharge today with oral antibiotic course and follow up with PCP. She verbalizes understanding of discharge instructions and is escorted to hospital exit with at approximately 1405 this afternoon.
== END 2025-01-25 14:05 | disposition home or self-care (01) | DRG 392 ==
LOC: ED 21:53 → AC 01-23 00:37
PROVIDERS: Student in an Organized Health Care Education/Training Program; Admitting Provider Internal Medicine; Emergency Provider Emergency Medicine; PCP Internal Medicine; Referring Provider Emergency Medicine; Visit Provider Internal Medicine
DX: K57.32 Diverticulitis of large intestine without perforation or abscess without bleeding (principal); J45.909 Unspecified asthma, uncomplicated
CPT/HCPCS: 36415; 74176; 80048; 80053; 81003; 83605; 83690; 83735; 85025; 87040; 96361; 96365; 96366; 96375; 96376; 99284; J2543

== ENCOUNTER → 2025-02-01 13:36 | Outpatient (CLI) | payer MEDICARE, OTHER, SELFPAY ==
[2025-01-23 01:24] VITALS: BMI 22.8
--- NOTE | 2025-02-01 13:38 | DI.RAD.S_ITS ---
PROCEDURE: XR DEXA AXIAL SKELETON INDICATIONS: Postmenopausal COMPARISON: None. FINDINGS: Lumbar Spine: Bone mineral density 0.985 g/cm2, T score neck is 0.6. Left Femoral Neck: Bone mineral density 0.850 g/cm2, T score 0.0. Left Hip: Bone mineral density 0.983 g/cm2, T score 0.3. Fracture Risk Calculation (when applicable): 10-year fracture risk of a major osteoporotic fracture 8.3 percent and of a hip fracture 0.8 percent. (T score greater or equal to -1.0 to: NORMAL) (T score from -1.1 to -2.4: OSTEOPENIA) (T score less than or equal to -2.5: OSTEOPOROSIS) IMPRESSION: Normal bone mineral density by WHO classification. Follow-up guidelines as follows: Osteoporosis: Consider a repeat DEXA and Vertebral Fracture Assessment (VFA) exam in 2 years or sooner if medically necessary, to reassess this patient's status. Osteopenia: Consider a repeat DEXA in 2-3 years to reassess this patient's status, or if there is a new clinical indication. Normal: Consider a repeat DEXA in 5 years or sooner, or if there is a new clinical indication. All treatment decisions require clinical judgment and consideration of individual patient factors, including patient preferences, comorbidities, previous drug use, risk factors not captured in the FRAX model (e.g., frailty, falls, vitamin D deficiency, increased bone turnover, interval significant decline in bone density ) and possible under- or over-estimation of fracture risk by FRAX. In addition, the NOF Guide recommends that FDA-approved medical therapies be considered in postmenopausal women and men age >= 50 years with a: * Hip or vertebral (clinical or morphometric) fracture * T-score of <=-2.5 at the spine or hip * Ten-year fracture probability by FRAX of >= 3% for hip fracture or >=20% for major osteoporotic fracture. Dictated by: Samy Burrell M.D. on 02/02/2025 at 10:08 Approved by: Samy Burrell M.D. on 02/02/2025 at 10:09
== END ==
PROVIDERS: PCP Family Medicine; Referring Provider Family Medicine; Visit Provider Family Medicine
DX: Z78.0 Asymptomatic menopausal state (principal)
CPT/HCPCS: 77080

== ENCOUNTER → 2025-03-12 10:05 | Outpatient (CLI) | payer MEDICARE, OTHER, SELFPAY ==
[2025-01-23 01:24] VITALS: BMI 22.8
--- NOTE | 2025-03-12 | DI.CT.S_ITS ---
PROCEDURE: CT ABDOMEN PELVIS WO CON INDICATIONS: CIRRHOSIS OF THE LIVE/ABNROMAL PRIOR FINDINGS TECHNIQUE: CT of the abdomen and pelvis was obtained without intravenous contrast. Coronal and sagittal reformats were performed. For radiation dose reduction, the following was used: automated exposure control, adjustment of mA and/or kV according to patient size. COMPARISON: [facility], CT, CT ABDOMEN PELVIS WO CON, 01/22/2025, 20:44. FINDINGS: Image quality: Diagnostic. Lower Chest: Peripheral lower lobe reticulation. ABDOMEN: Liver: Minimally nodular liver contour. No contour deforming mass visible. Gallbladder: Small cluster of tiny dependent gallstones at the fundus. Biliary ducts: No biliary dilation. Pancreas: No ductal dilation. Spleen: Size is within normal limits. Adrenal Glands: No adrenal nodules. Kidneys and Ureters: No hydronephrosis or nephrolithiasis. No contour deforming mass or perinephric inflammation. Nondilated ureters. Stomach and Bowel: Stomach and small bowel loops are normal caliber. Surgically absent appendix. Descending and sigmoid colonic diverticulosis without acute inflammation. Peritoneum: No abnormal intraperitoneal fluid. No free air. Ventral Wall: No significant hernia. Abdominal Nodes: Borderline periportal and portacaval lymph nodes. Borderline retroperitoneal adenopathy, specifically 2/63. No mesenteric mass. Vessels: The abdominal aorta, IVC, and portal vein are of normal caliber. Mild abdominal aortic atherosclerotic calcification. PELVIS: Pelvic Organs: Hysterectomy. Residual ovarian tissue is normal. Bladder: Unremarkable. Pelvic Nodes: No enlarged lymph nodes. Miscellaneous: No inguinal hernias are seen. Bones: No aggressive osseous abnormality. IMPRESSION: Resolution of acute descending and sigmoid colon diverticulitis. Irregular liver contour suspicious for early cirrhosis. Paragraphs cholelithiasis. Nonspecific borderline periportal and retroperitoneal lymph nodes. This can be seen in the setting of chronic liver disease. No significant growth since the prior exam. Dictated by: Nicole Diggs M.D. on 03/12/2025 at 13:31 Approved by: Nicole Diggs M.D. on 03/12/2025 at 13:36
--- NOTE | 2025-03-12 | DI.CT.S_ITS ---
PROCEDURE: CT CHEST HIGH RESOLUTION INDICATIONS: CIRRHOSIS OF THE LIVE/ABNROMAL PRIOR FINDINGS TECHNIQUE: Noncontrast 1.0 and 5.0 mm thick contiguous axial sections from the pulmonary apex to the posterior costophrenic angles, with 7 mm thick coronal and sagittal MIP reformats. 1 mm thick dynamic expiratory images acquired through the upper, mid, and lower lungs. 1.0 mm thick axial sections acquired from the lebron to the posterior costophrenic angles in the prone end-inspiration position. For radiation dose reduction, the following was used: automated exposure control, adjustment of mA and/or kV according to patient size. COMPARISON: [facility], CT, CT ABDOMEN PELVIS WO CON, 01/22/2025, 20:44. FINDINGS: Image quality: Diagnostic. Lungs and Pleura: Central airways are patent and of normal caliber. No bronchial wall thickening. Minimal peripheral lower lobe traction bronchiectasis. Mild scattered mosaic attenuation in the lower lobes suggesting slight lower lobe air trapping. Peripheral subpleural reticulation noted bilaterally involving upper and lower lobes to similar degree. No subpleural honeycombing. No dominant cystic or nodular pattern. No suspicious masses, ground-glass opacities, or consolidations. No pleural effusions or pleural calcifications. Lower Neck: No enlarged lymph nodes. Thyroid: Normal CT appearance. Axillae: No enlarged lymph nodes. Chest Wall: No suspicious chest wall lesions. Small linear radiodense foreign body in the medial left chest subcutaneous tissues. Bones: No suspicious bone lesion. Mild degenerative changes in the spine. Thoracic Vessels: The aorta and pulmonary arteries demonstrate normal size. Mediastinum and Sade: Borderline prominent AP window lymph node. No other significant mediastinal or hilar adenopathy. Heart: Heart size is normal. No pericardial effusion. Heavy coronary artery calcification. Esophagus: No wall thickening. No hiatal hernia. Upper Abdomen: Borderline portacaval and periportal adenopathy. Visible portions of upper abdominal organs are otherwise normal. IMPRESSION: Peripheral reticulation without other findings to suggest usual interstitial pneumonia. Nonspecific interstitial pneumonia may have this appearance. Minor air trapping in the lower lungs. Heavy coronary artery calcification. Dictated by: Nicole Diggs M.D. on 03/12/2025 at 13:18 Approved by: Nicole Diggs M.D. on 03/12/2025 at 13:30
== END ==
PROVIDERS: PCP Family Medicine; Referring Provider Family Medicine; Visit Provider Family Medicine
DX: K74.69 Other cirrhosis of liver (principal); R07.89 Other chest pain; J84.9 Interstitial pulmonary disease, unspecified; I25.10 Atherosclerotic heart disease of native coronary artery without angina pectoris; K80.20 Calculus of gallbladder without cholecystitis without obstruction
CPT/HCPCS: 71250; 74176

== ENCOUNTER → 2025-03-16 14:33 | Outpatient (CLI) | payer MEDICARE, OTHER, SELFPAY ==
[2025-01-23 01:24] VITALS: BMI 22.8
--- NOTE | 2025-03-22 18:24 | DI.NM.S_ITS ---
DATE OF SERVICE: 03/16/2025 EXERCISE PERFUSION STUDY INDICATIONS: Chest pain, hyperlipidemia, history of ASD, PSVT. RADIOPHARMACEUTICAL: 25.5 millicurie technetium-99m Myoview IV was injected at stress and 25.5 millicurie technetium-99m Myoview IV was injected at rest. CARDIAC STRESS: The patient underwent exercise perfusion study under the supervision of an attending staff. The patient walked on Jose protocol for 4 minutes and 30 seconds, achieved 7 METS of workload, CHRIST positive 18%, maximum heart rate of 162, which was 109% of target heart rate. Resting blood pressure 132/82 and peak blood pressure 160/90. Baseline rhythm sinus with intermittent PACs. During stress, nonspecific ST-T changes without any convincing ischemic changes. Frequent PACs including atrial couplet and short run of atrial tachycardia. Enhanced chronotropic response. In first stage, heart rate went all the way up to 140s and 150s. In recovery, PACs got improved. No ventricular tachycardia or obvious Afib. No chest pain, however, had significant shortness of breath. Oxygen saturation 100% at maximum exercise. RAW DATA: There is a breast shadow seen. GATED STUDY: Stress LV ejection fraction 89% without any obvious wall motion abnormalities. Resting end-diastolic volume 45 mL. TID ratio 1.11, which is within normal limits. Gated study stress supine images revealed small size, mildly decreased perfusion of distal anterior wall and anterior apex which got resolved during stress prone images suggestive of breast tissue attenuation artifact. Resting supine images revealed normal myocardial perfusion. CONCLUSION: I will call this study a normal myocardial perfusion study with evidence of breast tissue attenuation artifact which got resolved during stress prone images. It was 2 days' protocol. Small LV cavity with hyperdynamic LV function. No chest pain or ischemic EKG changes. However, the patient has significant shortness of breath with oxygen saturation 100%. Resting, PACs, which got worse during exercise with short run of atrial tachycardia without any obvious AFib or ventricular tachycardia. As far as perfusion scan is concerned, this is a low-risk myocardial perfusion scan. Correlate clinically. Yesica Cardona - GAVIOTA/peter/ORACIO doc#: [id number]/job#: [id number] dd: 03/22/2025 16:45:00 dt: 03/22/2025 17:46:00 DICTATING MD/COPIES TO: Madisyn Turner MD COPIES MNE: YUVAL;
== END ==
LOC: NUCM 14:34
PROVIDERS: PCP Family Medicine; Referring Provider Internal Medicine Cardiovascular Disease; Visit Provider Internal Medicine Cardiovascular Disease
DX: R07.9 Chest pain, unspecified (principal); R06.02 Shortness of breath; I49.1 Atrial premature depolarization; R00.0 Tachycardia, unspecified
CPT/HCPCS: 78452; 93017; A9502

== ENCOUNTER → 2025-04-18 10:36 | Outpatient (CLI) | payer MEDICARE, OTHER, SELFPAY ==
[2025-01-23 01:24] VITALS: BMI 22.8
== END ==
LOC: RESP 10:38
PROVIDERS: PCP Family Medicine; Referring Provider Internal Medicine; Visit Provider Internal Medicine
DX: J45.40 Moderate persistent asthma, uncomplicated (principal); J84.9 Interstitial pulmonary disease, unspecified; R05.3 Chronic cough; Z91.09 Other allergy status, other than to drugs and biological substances; R06.02 Shortness of breath; R94.2 Abnormal results of pulmonary function studies
CPT/HCPCS: 94060; 94070; 94618; 94726; 94729

== ENCOUNTER → 2025-05-26 11:21 | Outpatient (CLI) | payer MEDICARE, OTHER, SELFPAY ==
[2025-01-23 01:24] VITALS: BMI 22.8
--- NOTE | 2025-05-26 11:22 | DI.MG.S_ITS ---
MM screening mammo BI: 05/26/2025. BI-RADS: 2 CLINICAL: 74-year old female for bilateral screening mammogram. Tyrer-Cuzick lifetime risk of 7.5%. Current reported family history of breast cancer: mother. The patient had a prior left breast biopsy. PRIOR EXAMS 06/23/2024, 06/15/2024, 05/26/2024, 05/17/2024, MAMMOGRAPHY TECHNIQUE: 2D and 3D (tomosynthesis) digital mammographic views obtained, with additional images as needed for full coverage. Current study was also evaluated with a Computer Aided Detection (CAD) system. DENSITY C. The breasts are heterogeneously dense, which may obscure small masses. MAMMOGRAPHY FINDINGS Bilateral: Benign-appearing calcifications noted. There are no suspicious masses, calcifications, or other findings in the breast. IMPRESSION: * No evidence of malignancy with benign findings. RECOMMENDATIONS Bilateral * Annual screening mammography. OVERALL ASSESSMENT CATEGORY BI-RADS-2: Benign. The [employer] recommends annual screening mammography beginning at age 40 for women with average risk of breast cancer. ELECTRONICALLY SIGNED: Rodríguez Alejandro M.D. on 05/26/2025 at 09:46:42 PM PT Interpreting Station ID: [id number]
== END ==
PROVIDERS: PCP Family Medicine; Referring Provider Family Medicine; Visit Provider Family Medicine
DX: Z12.31 Encounter for screening mammogram for malignant neoplasm of breast (principal); Z80.3 Family history of malignant neoplasm of breast; R92.333 Mammographic heterogeneous density, bilateral breasts
CPT/HCPCS: 77063; 77067

== ENCOUNTER → 2025-06-29 07:18 | Day surgery (SDC) | payer MEDICARE, OTHER, SELFPAY ==
[2025-01-23 01:24] VITALS: BMI 22.8
[2025-06-14 08:33] VITALS: BMI 22.8
[2025-06-29] VITALS (7 sets, daily range): BP systolic 137–155; BP diastolic 62–78; PULSE 69–91; RESP 16–17; TEMP 36.2–36.4; O2SAT 98–100
--- NOTE | 2025-06-29 | DI.RAD.S_ITS ---
PROCEDURE: XR CHEST 1V INDICATIONS: aspiration TECHNIQUE: One view of the chest was acquired. COMPARISON: [facility], CR, XR CHEST 2V, 08/09/2023, 14:20. FINDINGS: Surgical changes and devices: None. Lungs and pleura: Mild increased vascularity. Mediastinum: Mediastinal contours appear normal. Heart size is normal. Bones and chest wall: No suspicious bony lesions. Overlying soft tissues appear unremarkable. IMPRESSION: Mild increased vascularity suggestive of edema. No focal consolidation. Dictated by: Luciana Villatoro M.D. on 06/29/2025 at 11:05 Approved by: Luciana Villatoro M.D. on 06/29/2025 at 11:05
[2025-06-29] MEDS: LACTATED RINGERS 1,000 ML 42 ML IV (07:48)
--- NOTE | 2025-06-29 08:31 | PM.HP.IH.1 ---
History of Present Illness History of Present Illness Date Patient Seen: 06/29/25 Time Patient Seen: 08:31 Chief complaint: BAL Narrative: Dear Dr. Greer, I would the pleasure of seeing your patient Yesica Cardona who has a pleasant 74-year-old female with a history of hyperlipidemia, diverticulitis, irregular heartbeat with SVT, osteoarthritis, adverse effects with anesthesia, multiple environmental allergies on Claritin and Flonase, history of recurrent sinusitis and bronchitis yearly seasonally being treated with antibiotics, mild intermittent asthma on no maintenance therapy not utilizing albuterol due to tachycardia issue who presents for follow up of interstitial lung disease. She has significant allergies, COVID-19 infection x 2 in 2019 now experiencing exertional dyspnea. HRCT showed some mild peripheral reticulation. PFTs demonstrated no obstruction, no significant response to bronchodilators, mild restriction and mildly depressed gas exchange.CTD-ILD serologies negative. Presented at -ILD conference recommending BAL with differential which she is here for today. [facility] Medical History (Updated 06/29/25 @ 08:37 by Rebel Starkey MD) Murmur PSVT (paroxysmal supraventricular tachycardia) Osteoarthritis HLD (hyperlipidemia) ILD (interstitial lung disease) Diverticulitis Right tennis elbow COVID-19 virus infection (12/2021) Osteoporosis Asthma DVT (deep venous thrombosis) Surgical History (Updated 06/14/25 @ 08:45 by Savana Mccurdy RN) Hx of bilateral cataract extraction Hx of removal of cyst S/P excision of Garcia's neuroma Hx of appendectomy History of hysterectomy Hx of arthroscopy of left knee Hx of arthroscopy of right knee H/O left wrist surgery H/O right wrist surgery Social History household members: spouse Smoking Status: Never smoker alcohol intake: current Meds Home Medications and Allergies Home Medications ?Medication ?Instructions ?Recorded ?Confirmed ?Type atenolol 25 mg tablet 25 - 50 mg PO DAILY 07/10/20 06/29/25 History estradiol 0.05 mg/24 hr semiweekly 1 mg transdermal 2XW 07/10/20 06/29/25 History transdermal patch cyclosporine 0.05 % eye drops in a drp 01/23/25 05/09/25 History dropperette (Restasis) ezetimibe 10 mg tablet 10 mg PO DAILY 01/23/25 06/29/25 History Allergies Allergy/AdvReac Type Severity Reaction Status Date / Time Sulfa (Sulfonamide Allergy Severe facial Verified 06/29/25 07:40 Antibiotics) swelling oxycodone AdvReac Severe Hives Verified 06/29/25 07:40 rosuvastatin AdvReac Severe Muscle Pain Verified 06/29/25 07:40 NSAIDS (Non-Steroidal AdvReac Intermediate Rash Verified 06/29/25 07:40 Anti-Inflamma codeine AdvReac Unknown Hives Verified 06/29/25 07:40 hydrocodone AdvReac Unknown Hives Verified 06/29/25 07:40 prednisone AdvReac Unknown sleep Verified 06/29/25 07:40 walking/talking Exam Vital Signs (past 8 hours): - 06/29/25 07:49 Temperature 97.6 F Pulse Rate 91 H Respiratory Rate 17 Blood Pressure 137/77 Pulse Oximetry 98 Oxygen Delivery Method Room Air Oxygen Delivery Method Room Air Narrative Exam Narrative: well appearing elderly female sitting up strethcer in no distress HENAL Head: normal to inspection Resp Effort & Inspection: normal respiratory effort and able to speak in complete sentences Auscultation: clear to auscultation bilaterally Neuro General: patient alert, patient awake and patient oriented x3 Objective Labs Labs: - Chest CT scan performed on March 12, 2025: Notable for mild to pleural peripheral reticulation in the upper and lower lobes, mild traction bronchiectasis, lower lobe interlobular septal thickening, and mild ground-glass opacities in an NSIP pattern. No significant adenopathy with lymph nodes less than 1 cm, no nodules, no honeycombing, no peripheral cysts, no mosaic attenuation. PFT: I personally reviewed PFTs from 04/18/2025 showing an FEV1 of 111% predicted, no obstruction, no significant response to bronchodilators, TLC of 81% of predicted or Z-score-1.78 and DLCO 69% predicted this is consistent with a mild restrictive ventilatory defect with mildly depressed gas exchange Labs: Absolute eosinophilic count of 100 CBC with a white blood cell count of 4.2, hemoglobin of 13.7 MCV of 105 and absolute eosinophilic count of 200 ESR 27 and CRP less than 0.5 Aspergillus fumigatus IgE less than 0.1 but also negative IgG antibody HP panel negative Total IgE of 4876 CCP 12 were negative SAMM negative, Anca negative, MPO and PR3 negative MyoMarker panel negative Assessment & Plan Assessment and plan (1) ILD (interstitial lung disease): Problem details: Patient does have an interstitial lung disease. CT with peripheral reticulation. PFTs with mild restriction and mildly depressed gas exchange. CTD-ILD workup negative. No exposures. Plan for bronchoscopy with BAL for differential to determine predominant inflammatory cell and management subseuqnetly. Appropriate to proceed with MAC sedation and bronchoscopy withBAL Status: Acute Time-Based Coding :: [TOTAL MINUTES] spent with patient and on the chart (including review of chart, obtaining history, exam, reviewing outside data, placing orders, documenting exam and treatment plan, and counseling patient) on [DATE]. PROFEE Crab Catcher Document charge(s): No
--- NOTE | 2025-06-29 08:37 | PM.PREOP ---
Pre-operative Note COVID-19 COVID-19 status: Not tested Interval Note History & Physical reviewed/Exam performed by Physician: Yes Changes to H&P: No H&P completed within 30 days and has changed as indicated here:: None ASA Class (for procedural sedation): II
[2025-06-29] MEDS: LIDOCAINE 2% (GLYDO) 6 ML GEL TOP (09:00)
--- NOTE | 2025-06-29 09:05 | SUR.OPER ---
Semi-Rivera on padded stretcher, head on pillow, arms resting at sides, legs uncrossed.
[2025-06-29] MEDS: ALBUTEROL/IPRATROPIUM 3 ML AMPUL INH (09:26)
[2025-06-29] MEDS: LIDOCAINE 2% INJ MDV 20ML 20 ML INJ (09:30)
--- NOTE | 2025-06-29 10:16 | P.PCN_ITS ---
Operative Date/Time/Diagnoses Date of procedure: 06/29/25 Time of procedure: 09:00 Pre-op diagnosis: ILD Post-op diagnosis: same Procedure & Clinicians Procedure(s): Bronchioalveolar lavage Same procedure(s) as scheduled: Yes Instructional Developer: Rebel Starkey Consent: Patient Anesthesia Type: MAC +/- Operative Notes Procedure Details & Findings: After informed consent and an identification pause, the patient was placed in the supine position and intubated by anesthesiology. The bronchoscope was inserted through the oropharynx.?Topical lidocaine 2% x 6 mL instilled on the vocal cords. The patient had laryngospasm requiring additional propofol and BVM. The bronchoscope was then inserted into the airway.?12mL x 2% lidocaine topical applied below vocal cords. Inspection was performed on the left and right bronchial trees. The lebron was: Sharp The airways were: Patent The mucosa appeared: normal Secretions were: Minimal Additional procedures completed as follows:: Bronchoalveolar lavage was performed in the lingula. 90 mL of 0.9% sterile saline was instilled and 30 mL return aspirated and sent for analysis . Estimated Blood Loss (mL): 0 Complications: other (laryngospasm in PACU after duoneb) Condition: Guarded Impression: Uncomplicated bronchoscopy Medications used: Per anesthesiology Specimen(s): BAL to cytology and BAL to micro Coding Bronchoscopy: 54436 - Bronch incl fluoro w/ bronchial alveolar lavage
--- NOTE | 2025-06-29 10:18 | PM.PNPO.1 ---
Subjective Subjective Date Patient Seen: 06/29/25 Time Patient Seen: 10:18 Interval history: Called by PACU due to laryngospasm after being given duoneb. Not ventilating. Anesthesia at bedside pushing PRN IV propofol with improvement temporarily then recurrent cough, laryngospasm. Due to concern for prior duoneb. Treated for anaphylaxis with IV dexamethasone, IV benadryl subsequently with IV midazolam 2gm with improvement. ETCO2 monitoring. Admit to hospistalist for observation. Exam Vital Signs (past 8 hours): - 06/29/25 07:49 Temperature 97.6 F Pulse Rate 91 H Respiratory Rate 17 Blood Pressure 137/77 Pulse Oximetry 98 Oxygen Delivery Method Room Air Oxygen Delivery Method Room Air Narrative Exam Narrative: elderly female lying in stretcher Resp Effort & Inspection: normal respiratory effort and able to speak in complete sentences Auscultation: clear to auscultation bilaterally Other: after laryngospasm (no air movement) -> moving good air bilaterally Neuro General: patient alert and patient awake Other: lethargic but answering questions (Due to multiple sedating medications - IV propofol, benadryl, midazolam) Objective Labs Labs: BAL labs pending [facility] Medical History (Updated 06/29/25 @ 08:37 by Rebel Starkey MD) Murmur PSVT (paroxysmal supraventricular tachycardia) Osteoarthritis HLD (hyperlipidemia) ILD (interstitial lung disease) Diverticulitis Right tennis elbow COVID-19 virus infection (12/2021) Osteoporosis Asthma DVT (deep venous thrombosis) Surgical History (Updated 06/14/25 @ 08:45 by Savana Mccurdy RN) Hx of bilateral cataract extraction Hx of removal of cyst S/P excision of Garcia's neuroma Hx of appendectomy History of hysterectomy Hx of arthroscopy of left knee Hx of arthroscopy of right knee H/O left wrist surgery H/O right wrist surgery Social History household members: spouse alcohol intake: current Assessment & Plan Post-op Postoperative Procedures: Procedures Operation Date: 06/29/25 08:30 Actual Procedure Side Surgeon p Bronchoscopy with bronchial alveolar lavage Not Applicable Rebel Starkey MD Postoperative day: 0 Postoperative status: other (laryngospasm) Postoperative plan narrative: Laryngospasm possibly due to duoneb (patient admitted that she had reaction previously) in setting of chronic cough. Treated empirically for anaphylaxis but unlikely (epi not yet given, benadryl, dexamethasone) -> but had relief with PRN IV propofol ultimately given IV midazolam. Discussed with anesthesia. No need for airway (see up to date if unclear treatment of laryngospasm). Continue PRN IV benzodiazepine, PRN lidocaine neb Time Spent With Patient Time with patient: Greater than 35 minutes
--- NOTE | 2025-06-29 10:51 | P.PN_ITS ---
Subjective Subjective Interval history: Reason for encounter: 74y/o F with ILD (mild restrictive disease with mildly reduced DLCO, no home O2, chronic cough) in for diagnostic bronch with BAL. Post-op, pt suffered recurrent laryngospasm in PACU requiring multiple propofol boluses for rescue over roughly an hour. Pt responded well to boluses with rapid recovery after each dose. However, with coughing fits, she frequently reverted to spasm and was unable to adequately ventilate without intervention. Pt also re ceived duonebs, which seemed to worsen the spasm, then nebulized lidocaine and benzodiazepine, which improved her breathing. Her SaO2 remained high 90's to 100% on NCO2, with the exception of her first spasm, where she dipped into the 80's before breaking the spasm with propofol and required mask O2. Exam Vital Signs (past 8 hours): - 06/29/25 07:49 Temperature 97.6 F Pulse Rate 91 H Respiratory Rate 17 Blood Pressure 137/77 Pulse Oximetry 98 Oxygen Delivery Method Room Air Oxygen Delivery Method Room Air Narrative Exam Narrative: Gen: intermittent moderate distress with glottic narrowing, NAD when able to breath comfortably. Lungs: Diminished BS LLL (consistent with BAL), otherwise clear with good air movement. Frequent upper airway sounds with recurring glottic closure/narrowing PFSH Medical History (Updated 06/29/25 @ 08:37 by Rebel Starkey MD) Murmur PSVT (paroxysmal supraventricular tachycardia) Osteoarthritis HLD (hyperlipidemia) ILD (interstitial lung disease) Diverticulitis Right tennis elbow COVID-19 virus infection (12/2021) Osteoporosis Asthma DVT (deep venous thrombosis) Surgical History (Updated 06/14/25 @ 08:45 by Savana Mccurdy RN) Hx of bilateral cataract extraction Hx of removal of cyst S/P excision of Garcia's neuroma Hx of appendectomy History of hysterectomy Hx of arthroscopy of left knee Hx of arthroscopy of right knee H/O left wrist surgery H/O right wrist surgery Social History household members: spouse alcohol intake: current Assessment & Plan Post-op Postoperative Procedures: Procedures Operation Date: 06/29/25 08:30 Actual Procedure Side Surgeon p Bronchoscopy with bronchial alveolar lavage Not Applicable Rebel Starkey MD Postoperative day: 0 Postoperative status: other (recurring laryngospasm requiring intervention in PACU) Postoperative plan: other (Consult with hospitalist, admit to ICU for close monitoring)
[2025-06-29 11:49] LABS: Eosinophils Body Fluid 2 %; Lymphocytes Body Fluid 14 %; MESO/MACRO/MONO Body Fluid 72 %; Neutrophils Body Fluid 10 %
[2025-06-29 11:50] LABS: Abnormal Cells Body Fluid 2 %
== END | disposition home or self-care (01) ==
PROVIDERS: PCP Family Medicine; Referring Provider Family Medicine; Visit Provider Internal Medicine
PROC: 0BJ08ZZ Inspection of Tracheobronchial Tree, Via Natural or Artificial Opening Endoscopic (ICD-10-PCS; CPT 31622; principal; 2025-06-29 08:30)
DX: J84.9 Interstitial pulmonary disease, unspecified (principal); J38.5 Laryngeal spasm
CPT/HCPCS: 71045; 87801; J1100; J1200; J2060; J2250; J2405; J2704; J3010; J7120

== ENCOUNTER 2025-06-29 11:48 | Inpatient (IN) | payer MEDICARE, OTHER, SELFPAY ==
[2025-01-23 01:24] VITALS: BMI 22.8
[2025-06-29] VITALS (18 sets, daily range): BP systolic 107–140; BP diastolic 52–79; PULSE 65–103; RESP 15–39; TEMP 36.1–36.6; O2SAT 8–100; BMI 25.3
[2025-06-29 12:58] LABS: Add Manual Diff / Slide Review NO; Hematocrit 39.7 % (36-46); Hemoglobin 13.6 g/dL (12.0-16.0); Lymphocytes Absolute Auto 500 /uL (1100-4500); Mean Corpuscular HGB Conc 34.2 % (30-36); Mean Corpuscular Hemoglobin 34.5 PG (26-34); Mean Corpuscular Volume 101.0 fL (80-100); Platelet Count 137 X10^3/uL (150-400)
[2025-06-29 13:14] LABS: Alanine Aminotransferase 53 IU/L (<35); Albumin 4.5 g/dL (3.5-5.0); Albumin Globulin Ratio 1.5 (1.0-2.8); Alkaline Phosphatase 56 U/L (38-126); Blood Urea Nitrogen 12 mg/dL (7-17); Calcium 9.5 mg/dL (8.4-10.2); Carbon Dioxide 26 mmol/L (22-32); Chloride 103 mmol/L (98-107); Estimated Glomerular Filt Rate > 60 mL/min (>60); Globulin 3.1 g/dL (1.7-4.1); Glucose 132 mg/dL (70-99); HEMOLYSIS < 15 (0-50); Potassium 4.0 mmol/L (3.4-5.1); Sodium 136 mmol/L (137-145); Total Protein 7.6 g/dL (6.3-8.2)
[2025-06-29] MEDS: DEXTROSE 5%-0.45% NS 1,000 ML 100 ML IV ×2 (13:22→23:04)
[2025-06-29 13:26] LABS: Troponin I < 0.012 ng/mL (0.01-0.034)
--- NOTE | 2025-06-29 14:13 | P.HP_ITS ---
History of Present Illness
--- NOTE | 2025-06-29 14:13 | PM.HP.IH.1 ---
History of Present Illness History of Present Illness Date Patient Seen: 06/29/25 Time Patient Seen: 10:55 Chief complaint: Shortness of breath Narrative: 74-year-old woman underwent bronchoscopy this morning in evaluation of interstitial lung disease by Dr. Rebel Starkey and experienced laryngeal spasm. She is seen urgently in the recovery room where she has been administered 2 successive doses of 1 mg lorazepam intravenously, several doses of propofol, as well as subsequent Precedex, and continues to experience intermittent stridorous episodes with respiratory distress. She was also administered albuterol, and has described feeling tachycardic episodes with coughing after administered bronchodilators in the past during pulmonary function test, though states that this is distinctly different, with stridor and upper respiratory symptoms. Her oxygen saturations remained in the 90s to 100% on nasal cannula oxygen, though reported that she had an oxygen saturation dipping into the 80s % range with her 1st bronchospasm episode today. [facility] Medical History Asthma COVID-19 virus infection (12/2021) Diverticulitis DVT (deep venous thrombosis) HLD (hyperlipidemia) ILD (interstitial lung disease) Murmur Osteoarthritis Osteoporosis PSVT (paroxysmal supraventricular tachycardia) Right tennis elbow Surgical History H/O left wrist surgery H/O right wrist surgery History of hysterectomy Hx of appendectomy Hx of arthroscopy of left knee Hx of arthroscopy of right knee Hx of bilateral cataract extraction Hx of removal of cyst S/P excision of Garcia's neuroma Social History household members: spouse Smoking Status: Never smoker alcohol intake: former Meds Home Medications and Allergies Home Medications ?Medication ?Instructions ?Recorded ?Confirmed ?Type atenolol 25 mg tablet 25 - 50 mg PO DAILY 07/10/20 06/29/25 History Held on 06/29/25. Instructions: LOW HEART RATE estradiol 0.05 mg/24 hr semiweekly 1 mg transdermal 2XW 07/10/20 06/29/25 History transdermal patch cyclosporine 0.05 % eye drops in a 1 drp EYE-BOTH BID PRN dry eye(s) 01/23/25 06/29/25 History dropperette (Restasis) ezetimibe 10 mg tablet 10 mg PO DAILY 01/23/25 06/29/25 History Held on 06/29/25. Instructions: PER Allergies Allergy/AdvReac Type Severity Reaction Status Date / Time albuterol (From DuoNeb) Allergy Severe Anaphylaxis Verified 06/29/25 09:52 ipratropium (From DuoNeb) Allergy Severe Anaphylaxis Verified 06/29/25 09:52 Sulfa (Sulfonamide Allergy Severe facial Verified 06/29/25 07:40 Antibiotics) swelling oxycodone AdvReac Severe Hives Verified 06/29/25 07:40 rosuvastatin AdvReac Severe Muscle Pain Verified 06/29/25 07:40 NSAIDS (Non-Steroidal AdvReac Intermediate Rash Verified 06/29/25 07:40 Anti-Inflamma codeine AdvReac Unknown Hives Verified 06/29/25 07:40 hydrocodone AdvReac Unknown Hives Verified 06/29/25 07:40 prednisone AdvReac Unknown sleep Verified 06/29/25 07:40 walking/talking Review of Systems Review of Systems ROS: Yes All systems reviewed with the patient and are negative except as otherwise documented Exam Vital Signs (past 8 hours): - 06/29/25 10:15 06/29/25 10:20 06/29/25 12:00 Temperature 97.8 F Pulse Rate 103 H 85 85 Respiratory Rate 28 H 25 H 22 Blood Pressure 131/79 Pulse Oximetry 100 98 Oxygen Delivery Method Nasal Cannula Oxygen Flow Rate 2 2 06/29/25 12:00 06/29/25 13:00 Temperature 97.8 F 97.8 F Pulse Rate 84 82 Respiratory Rate 33 H 27 H Blood Pressure 131/79 133/75 Pulse Oximetry 98 98 Oxygen Delivery Method Oxygen Flow Rate 1.5 1.5 Oxygen Delivery Method Nasal Cannula Oxygen Flow Rate 1.5 Narrative Exam Narrative: GENERAL: This is a well-nourished, well-developed patient, appears calm though with intermittent stridor episodes, responding to calming as well as IV lorazepam. HEAD: Atraumatic. Normocephalic. No temporal or scalp tenderness. EYES: Pupils equal round and reactive. Extraocular motions intact. No scleral icterus. No injection or drainage. ENT: Mucous membranes pink and moist. NECK: Trachea midline. No JVD, bruits or lymphadenopathy. Supple, nontender, no meningeal signs. CARDIOVASCULAR: Regular rate and rhythm without murmurs, gallops, or rubs. RESPIRATORY: Scattered rhonchi bilaterally, stridor noted during respiratory distress episodes. GASTROINTESTINAL: Abdomen soft, non-tender, nondistended. EXTREMITIES: No clubbing, cyanosis, or edema. BACK: Nontender without deformity or crepitance. No flank tenderness. NEUROLOGIC: Alert, oriented, speech fluent, full upper and lower motor strength, no focal deficits evident. DERMATOLOGIC: No rashes or skin lesions. Objective Imaging Chest x-ray: Radiologist's impression: Mild increased vascularity suggestive of edema. No focal consolidation. Labs 06/29/25 12:48 06/29/25 12:48 Labs: Laboratory Results - last 24 hr 06/29/25 12:48 WBC 3.8 L RBC 3.93 L Hgb 13.6 Hct 39.7 MCV 101.0 H MCH 34.5 H MCHC 34.2 RDW 13.2 Plt Count 137 L Neut % (Auto) 83.3 H Lymph % (Auto) 13.4 L [place] % (Auto) 2.4 L Eos % (Auto) 0.4 L Baso % (Auto) 0.5 Neut # (Auto) 3100 Lymph # (Auto) 500 L [place] # (Auto) 100 Eos # (Auto) 0 Baso # (Auto) 0 Sodium 136 L Potassium 4.0 Chloride 103 Carbon Dioxide 26 BUN 12 Creatinine 0.69 Estimated GFR > 60 BUN/Creatinine Ratio 17.4 Glucose 132 H Calcium 9.5 Total Bilirubin 0.7 AST 62 H ALT 53 H Alkaline Phosphatase 56 Troponin I < 0.012 Total Protein 7.6 Albumin 4.5 Globulin 3.1 Albumin/Globulin Ratio 1.5 Assessment & Plan Assessment & Plan narrative: 1. Acute laryngospasm complicating bronchoscopy. 2. Acute respiratory distress due to 1 with transient hypoxemia. 3. Interstitial lung disease. 4. Moderate persistent asthma, intolerant of beta agonist. 5. Multiple allergies and drug intolerances. DVT prophylaxis: Sequential compression devices Code status: Full code. Plan: -admit to ICU for observation -intermittent lorazepam as needed -nasal cannula oxygen JOSHUA: Plan for discharge tomorrow if stable and doing well overnight. Quality VTE Deep Vein Thrombosis/Pulmonary Embolism Present on Admission: No PROFEE Selling Manager Document charge(s): Yes Charge Codes Initial inpatient/observation care: [id number]
--- NOTE | 2025-06-29 14:28 | EKG_ITS ---
[facility]
[2025-06-30] VITALS (17 sets, daily range): BP systolic 97–126; BP diastolic 52–83; PULSE 52–80; RESP 13–33; TEMP 36.4–37.1; O2SAT 94–100
[2025-06-30 05:37] LABS: Blood Urea Nitrogen 8 mg/dL (7-17); Calcium 9.2 mg/dL (8.4-10.2); Carbon Dioxide 27 mmol/L (22-32); Chloride 104 mmol/L (98-107); Estimated Glomerular Filt Rate > 60 mL/min (>60); Glucose 151 mg/dL (70-99); HEMOLYSIS < 15 (0-50); Potassium 3.9 mmol/L (3.4-5.1); Sodium 135 mmol/L (137-145)
--- NOTE | 2025-06-30 11:40 | P.DS_ITS ---
History of Present Illness
--- NOTE | 2025-06-30 11:40 | PM.DS.IH.1 ---
History of Present Illness History of Present Illness Date Patient Seen: 06/30/25 Time Patient Seen: 08:53 Chief complaint: Shortness of breath Narrative: 74-year-old woman underwent bronchoscopy this morning in evaluation of interstitial lung disease by Dr. Rebel Starkey and experienced laryngeal spasm. She is seen urgently in the recovery room where she has been administered 2 successive doses of 1 mg lorazepam intravenously, several doses of propofol, as well as subsequent Precedex, and continues to experience intermittent stridorous episodes with respiratory distress. She was also administered albuterol, and has described feeling tachycardic episodes with coughing after administered bronchodilators in the past during pulmonary function test, though states that this is distinctly different, with stridor and upper respiratory symptoms. Her oxygen saturations remained in the 90s to 100% on nasal cannula oxygen, though reported that she had an oxygen saturation dipping into the 80s % range with her 1st bronchospasm episode today. Discharge Providers Provider Date of admission: 06/29/25 11:48 Discharge Date: 06/30/25 Primary care physician: Priyanka Greer MD Discharge provider: Solitario Snider MD Summary Hospital Course Discharge Diagnosis: 1. Acute laryngospasm complicating bronchoscopy. 2. Acute respiratory distress due to 1 with transient hypoxemia. 3. Interstitial lung disease. 4. Moderate persistent asthma, intolerant of beta agonist. 5. Multiple allergies and drug intolerances. Hospital Course: The patient was admitted to the ICU and monitored overnight. She had no new events, and did not require further respiratory intervention. She was feeling well and interested in discharge home the following morning. She plans outpatient follow-up through pulmonology. Status at Discharge Cognitive/behavioral status at discharge: oriented Functional status at discharge: independent ambulation Overall status at discharge: patient is back to baseline Time Spent with Patient Time spent: Less than 30 minutes Exam Vital Signs (past 8 hours): - 06/30/25 04:00 06/30/25 04:00 06/30/25 04:00 Temperature Pulse Rate 61 58 L Respiratory Rate 18 14 Blood Pressure 103/83 103/53 L Pulse Oximetry 96 97 Oxygen Flow Rate 1 06/30/25 04:30 06/30/25 05:00 06/30/25 05:00 Temperature Pulse Rate 62 54 L Respiratory Rate 18 18 Blood Pressure 108/56 L 108/56 L Pulse Oximetry 97 100 Oxygen Flow Rate 1 06/30/25 05:00 06/30/25 05:30 06/30/25 06:00 Temperature Pulse Rate 68 56 L Respiratory Rate 16 14 Blood Pressure 108/56 L Pulse Oximetry 99 100 Oxygen Flow Rate 06/30/25 06:00 06/30/25 06:30 06/30/25 07:00 Temperature Pulse Rate 57 L 52 L Respiratory Rate 13 15 Blood Pressure 118/56 L Pulse Oximetry 100 100 Oxygen Flow Rate 06/30/25 07:00 06/30/25 07:30 06/30/25 08:00 Temperature Pulse Rate 56 L 66 Respiratory Rate 18 20 Blood Pressure 106/52 L Pulse Oximetry 98 97 Oxygen Flow Rate 06/30/25 08:00 06/30/25 08:30 06/30/25 08:32 Temperature 97.6 F Pulse Rate 58 L 59 L Respiratory Rate 16 13 Blood Pressure Pulse Oximetry 95 96 Oxygen Flow Rate Oxygen Delivery Method Nasal Cannula Oxygen Flow Rate 1 Narrative Exam Narrative: GENERAL: This is a well-nourished, well-developed patient, appears calm and comfortable in no apparent respiratory distress. EYES: Pupils equal round and reactive. Extraocular motions intact. No scleral icterus. No injection or drainage. ENT: Mucous membranes pink and moist. NECK: Trachea midline. No JVD, bruits or lymphadenopathy. Supple, nontender, no meningeal signs. CARDIOVASCULAR: Regular rate and rhythm without murmurs, gallops, or rubs. RESPIRATORY: Occasional mid lung field fine crackles, no rhonchi, no wheezing. GASTROINTESTINAL: Abdomen soft, non-tender, nondistended. EXTREMITIES: No clubbing, cyanosis, or edema. NEUROLOGIC: Alert, oriented, speech fluent, full upper and lower motor strength, no focal deficits evident. DERMATOLOGIC: No rashes or skin lesions. Objective Labs 06/29/25 12:48 06/30/25 04:30 Labs: Laboratory Results - last 24 hr 06/29/25 06/30/25 12:48 04:30 WBC 3.8 L RBC 3.93 L Hgb 13.6 Hct 39.7 MCV 101.0 H MCH 34.5 H MCHC 34.2 RDW 13.2 Plt Count 137 L Neut % (Auto) 83.3 H Lymph % (Auto) 13.4 L [place] % (Auto) 2.4 L Eos % (Auto) 0.4 L Baso % (Auto) 0.5 Neut # (Auto) 3100 Lymph # (Auto) 500 L [place] # (Auto) 100 Eos # (Auto) 0 Baso # (Auto) 0 Sodium 136 L 135 L Potassium 4.0 3.9 Chloride 103 104 Carbon Dioxide 26 27 BUN 12 8 Creatinine 0.69 0.61 Estimated GFR > 60 > 60 BUN/Creatinine Ratio 17.4 13.1 Glucose 132 H 151 H Calcium 9.5 9.2 Total Bilirubin 0.7 AST 62 H ALT 53 H Alkaline Phosphatase 56 Troponin I < 0.012 Total Protein 7.6 Albumin 4.5 Globulin 3.1 Albumin/Globulin Ratio 1.5 PFSH Medical History Asthma COVID-19 virus infection (12/2021) Diverticulitis DVT (deep venous thrombosis) HLD (hyperlipidemia) ILD (interstitial lung disease) Murmur Osteoarthritis Osteoporosis PSVT (paroxysmal supraventricular tachycardia) Right tennis elbow Surgical History H/O left wrist surgery H/O right wrist surgery History of hysterectomy Hx of appendectomy Hx of arthroscopy of left knee Hx of arthroscopy of right knee Hx of bilateral cataract extraction Hx of removal of cyst S/P excision of Garcia's neuroma Social History household members: spouse Smoking Status: Never smoker alcohol intake: former Discharge Plan Discharge Plan Patient Disposition: Home Provider Discharge Comment: Followup with Dr. Starkey as directed Discharge orders & Medications Prescriptions: Continued atenolol 25 mg tablet 25 - 50 mg PO DAILY estradiol 0.05 mg/24 hr patch semiweekly 1 mg transdermal 2XW cyclosporine [Restasis] 0.05 % dropperette 1 drp EYE-BOTH BID PRN (Reason: dry eye(s)) Patient Comments: [NO ORIGINAL SIG] ezetimibe 10 mg tablet 10 mg PO DAILY Follow up/Referrals: Priyanka Greer MD [Primary Care Provider, Family Practice] Visit Report/Discharge Packet Stand Alone Forms: Patient Portal/API, Stroke Signs & Symptoms Discharge Data Primary Care Provider: Priyanka Greer Quality VTE Deep Vein Thrombosis/Pulmonary Embolism Present on Admission: No MIPS - Admit I confirm the patient?s Advance Care Plan is present, Code status is documented, Surrogate decision maker is in patient?s record [If Yes, STOP here]: Yes MIPS - Meds 'Current medications' to include all prescriptions, [id number] products, herbals, cannabis/cannabidiol products, and vitamin/mineral/dietary (nutritional) supplements. I have utilized all available resources to obtain, update, or review the patient?s current medications. [If Yes, STOP here]: Yes MIPS - DC The patient has a history of heart transplant or Left Ventricular Assist Device (LVAD). If yes, STOP here.: No The patient has current or prior documentation of left ventricular ejection fraction (LVEF) less than or equal to 40%, or moderate or severely depressed left ventricular systolic function.: No A. The patient was prescribed or already taking an Angiotensin-Converting Enzyme (KIRILL) Inhibitor, or Angiotensin Receptor Fidel (ARB).: No B. The patient was prescribed or already taking a beta-fidel. [If Yes to Both A & B, STOP here]: Yes Patient not prescribed/taking KIRILL or ARB, no reason given.: No Patient not prescribed/taking beta-fidel, no reason given.: No PROFEE Charge Codes Discharge inpatient/observation: [id number]
--- NOTE | 2025-06-30 13:48 | CM.DANOTE ---
Initial DCP Assessment Note. Review EMR and PT Interview. Per chart review, independent, lives with dolores. Payor:??MCR PCP: Summary & Plan:?74 y/o female s/p elective Bronchioalvelar Lavage and Brocho-Spasm after procedure. ADmitted ICU OBS. Plan: observe and oxygen PRN. Discharge Planning/Care Management CM Discharge Assessment Start: 06/29/25 11:49 Freq: Status: Discharge Protocol: Document 06/30/25 13:47 (Rec: 06/30/25 13:48 [email or web address]) Discharge Planning Assessment Assigned Discharge Minerva Watts RN CM Sales Team Leader Provider Dr. Greer Insurance Medicare Advance Directives? Yes Advance Directives No on File History Provided By Patient Has Patient been No admitted in last 30 days? Prior Living House Arrangements Household Members spouse Independent with ADL Yes 's Is patient alert and Yes oriented? Caregiver for No Another Discharge Plan Home Review Status In Process Please Provide Date 06/29/25 Initial DC Assessment Was Performed Next Review Type Continued Stay Review
== END 2025-06-30 09:14 | disposition home or self-care (01) | DRG 206 ==
LOC: LAB 14:20 → ICU 14:20
PROVIDERS: Internal Medicine; Admitting Provider Internal Medicine; PCP Family Medicine; Referring Provider Internal Medicine; Visit Provider Internal Medicine
DX: J95.89 Other postprocedural complications and disorders of respiratory system, not elsewhere classified (principal); J84.9 Interstitial pulmonary disease, unspecified; J45.40 Moderate persistent asthma, uncomplicated; J38.5 Laryngeal spasm; R06.03 Acute respiratory distress; E78.5 Hyperlipidemia, unspecified; Y84.8 Other medical procedures as the cause of abnormal reaction of the patient, or of later complication, without mention of misadventure at the time of the procedure; Z86.16 Personal history of COVID-19; Z86.718 Personal history of other venous thrombosis and embolism; Z79.890 Hormone replacement therapy; Z88.6 Allergy status to analgesic agent; Z88.5 Allergy status to narcotic agent; Z88.2 Allergy status to sulfonamides; Z88.8 Allergy status to other drugs, medicaments and biological substances
CPT/HCPCS: 36415; 80048; 80053; 84484; 85025; 87116; 87206; 93005; 94640

== ENCOUNTER → 2025-07-12 10:14 | Outpatient (CLI) | payer MEDICARE, OTHER, SELFPAY ==
[2025-06-29 11:49] VITALS: BMI 25.3
--- NOTE | 2025-07-12 10:16 | DI.MRI.S_ITS ---
PROCEDURE: MR ABDOMEN LIVER PROTOCOL INDICATIONS: Cirrhosis; hcc screening high AFP TECHNIQUE: Coronal HASTE, axial 2D FLASH in- and [id number]; axial breath-hold T2 FSE. Dynamic axial VIBE during the administration of contrast; post-contrast coronal VIBE or 2D FLASH with fat saturation from the hepatic dome to the iliac crests. Optional diffusion weighted imaging and ADC may be performed. COMPARISON: [facility], CT, CT ABDOMEN PELVIS WO CON, 03/12/2025, 10:11. FINDINGS: Image quality: Diagnostic Lower chest: Unremarkable lung bases. Normal heart size. Liver: No hypervascular liver lesion seen on arterial phase. No 6 this is signal on diffusion or T2 weighted images. There is a small cyst in segment 6. Relative left lobe hypertrophy and minimally irregular contour. Gallbladder and biliary system: Unremarkable gallbladder. CBD is mildly prominent at 6 mm Pancreas: No ductal dilation Spleen: Nonenlarged Adrenals: No discrete nodules Kidneys: No solid renal mass. Small cysts. No hydronephrosis. Vessels and lymph nodes: Main portal vein is patent. No abdominal aortic aneurysm. Prominent periportal lymph nodes, probably reactive. Attention on follow-up Bowel and peritoneum: No bowel obstruction. No drainable abscess or ascites. Body wall: Unremarkable Bones: There are degenerative osseous changes. No aggressive appearing osseous abnormality IMPRESSION: No suspicious hypervascular liver lesion. Recommend continued HCC surveillance given provided history. Other findings above. Dictated by: Armando Fierro M.D. on 07/13/2025 at 13:09 Approved by: Armando Fierro M.D. on 07/13/2025 at 13:14
== END ==
LOC: MRI 10:15
PROVIDERS: PCP Family Medicine; Referring Provider Physician Assistant; Visit Provider Physician Assistant
DX: K74.60 Unspecified cirrhosis of liver (principal); R77.2 Abnormality of alphafetoprotein; N28.1 Cyst of kidney, acquired; K76.89 Other specified diseases of liver
CPT/HCPCS: 74183; A9579